=== PATIENT | female | born 1980 | race Caucasian/White ===

== ENCOUNTER 2017-01-16 10:57 | Emergency (ER) | payer MEDICAID ==
[~2017-01-16] VITALS: Ht 165.1 cm; Wt 87.5 kg
--- NOTE | 2017-01-16 11:09 | Emergency Room Report ---
History of Present Illness Time Seen by [id number] Presenting Problem in Triage Pt arrived:Walked Presenting Problem:abd pain that has caused blisters throughout her gi tract. 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 N Clinical Suspician of Infection? N Mental Status: 1 - Regular (Normal Baseline) Sepsis Risk:Low Sepsis Risk Have you (or family members/close friends) recently traveled outside the [place]? N If Yes, where/when: Have you had exposure to infectious disease within the past month? TB? Other? Specify: Comment The patient complains of epigastric pain. She says she has not been well since about December 28 when she ate some banana peppers. She says that after that she developed welts on her face and arms. She went to [facility] emergency Department on the and and received steroids and Benadryl. She saw her primary care physician on the and also got a shot of steroids at that time. She has seen an speech language pathologist travel, who put her on Flonase and saline spray. She is not currently on steroids or antihistamines. The hives have improved, but she still has a burning sensation in her face. On about Wednesday 3 or 4 days ago she developed midepigastric pain, and a small amount of nausea, vomiting, and diarrhea. She has a history of gastric esophageal reflux and is currently having bad reflux symptoms as well. She is on Zantac for that. She saw a new primary care physician 2 days ago and was prescribed Phenergan. ALLERGIES Coded Allergies: sulfamethoxazole (From BACTRIM) (Mild, 01/16/17) trimethoprim (From BACTRIM) (Mild, 01/16/17) History Medical History General Angina: No MD: No Hypertension? No Hyperlipidemia? No CHF? No COPD? No Asthma? No Hernia? No CVA? No Seizures? No Diabetes? No UTI? No Stones? No GB Disease: Yes Hepatitis? No Cataracts? No Glaucoma? No TB? No Cancer? 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 Hx LMP N/A Family History Family Hx Diabetes Yes CAD No Hypertension No Hyperlipidemia No Cancer Yes TB No Social History Smoking Hx Smoker: Former Smoker Tobacco: Yes Type Cigarettes Packs/day N/A Alcohol Alcohol: No Review of Systems All Other Systems Reviewed and Negative Constitutional denies fever Gastrointestinal abdominal pain, diarrhea, vomiting Skin see HPI Physical Exam Vital Signs Vital Signs Date Time Temp Pulse Resp B/P Pulse O2 O2 Flow FiO2 Ox Delivery Rate 01/16 1220 98.0 78 20 131/74 100 01/16 1103 98.0 89 18 150/96 98 General Appearance normal appearance, WD/WN Eye Exam - bilateral eye normal exam, bilateral eye PERRL, bilateral eye EOMI Ear, Nose, Throat hearing grossly normal, normal ENT inspection Neck normal inspection, non-tender, supple, full range of motion Respiratory Status Yes: trachea midline, chest symmetrical, non tender chest. No: respiratory distress. Lung Sounds bilateral: normal breath sounds, lungs clear. Cardiovascular normal exam, regular rate/rhythm, no peripheral edema, no gallop, no JVD, no murmur, no rub, normal peripheral pulses Peripheral Pulses Pulses normal Yes Gastrointestinal normal bowel sounds, soft, no organomegaly, no guarding, no rebound, tenderness (epigastric) Back normal inspection, no CVA tenderness, no vertebral tenderness Extremities non-tender, normal range of motion, normal inspection Neurologic alert, sleeve bottom feller II-XII nml as tested, normal exam, oriented x 3 Mental status normal mood/affect Skin intact, normal color, warm/dry Medical Decision Making LABS/Meds/Orders Pt receiving controlled substance in ED? No Results/Orders Laboratory Tests 01/16/17 1117: Urine Color Cancelled, Urine Appearance Cancelled, Urine pH Cancelled, Ur Specific [place] Cancelled 01/16/17 1105: Sodium 138, Potassium 3.5, Chloride 100, Carbon Dioxide 30, BUN 6 L, Creatinine 0.7, Estimated Creat Clear 152, Estimated GFR (MDRD) 94, Glucose 103, Calcium 9.2, Total Bilirubin 1.3 H, AST 19, ALT 38, Alkaline Phosphatase 95, Total Protein 7.8, Albumin 4.1, Globulin 3.7 H, Albumin/Globulin Ratio 1.1, Amylase 51, Lipase 111, WBC 9.4, RBC 4.65, Hgb 14.9, Hct 42.0, MCV 90.4, RDW 12.9, Plt Count 260, MPV 8.5, Gran % 71.0, Gran # 6.7, Lymphocytes % 21.1, Monocytes % 6.7 , Eosinophils % 0.4, Basophils % 0.7, Lymphocytes # 2.0, Monocytes # 0.6, Eosinophils # 0.0, Basophils # 0.1, PUBS MCHC 35.5 H, MCH 32.1 H Current Medication Orders Sig/Kayy Start time Last Medication Dose Route Stop Time Status Admin Sodium Chloride 10 ML PRN PRN 01/16 1130 DCD IV 01/17 1117 Orders Procedure Date/time Status SERUM , QUAL 01/16 1138 Complete IV SALINE LOCK 01/16 111 Active LIPASE 01/16 111 Complete CBC WITH AUTO DIFF 01/16 111 Complete CHEM 12 PROFILE 01/16 1117 Complete AMYLASE 01/16 111 Complete Progress - 11:15 AM: The patient refuses a gastrointestinal cocktail. 12:00 PM: I feel sx are most likely due to gastritis or PUD due to steroids. Departure Departure Disposition DC Home or Self Care(routine) Clinical Impression Primary Impression: Epigastric pain Condition STABLE Referrals [facility] (Family) Patient Instructions DI for Abdominal Pain-Adult Additional Instructions Start Prilosec, stop Zantac while on Prilosec. Additional instructions for ABDOMINAL PAIN: See your physician as soon as possible for further evaluation. Return immediately if worsening abdominal pain, vomiting, shortness of breath, fever, vomiting of blood or abdominal distention. Prescriptions Current Visit Scripts OMEPRAZOLE MAGNESIUM (Prilosec 20MG) 20 MG PO DAILY #10 TCP ED Critical Care Critical Care No at [id number]
--- NOTE | 2017-01-16 11:09 | Emergency Room Report ---
History of Present Illness Time Seen by [id number] Presenting Problem in Triage Pt arrived:Walked Presenting Problem:abd pain that has caused blisters throughout her gi tract. 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 N Clinical Suspician of Infection? N Mental Status: 1 - Regular (Normal Baseline) Sepsis Risk:Low Sepsis Risk Have you (or family members/close friends) recently traveled outside the [place]? N If Yes, where/when: Have you had exposure to infectious disease within the past month? TB? Other? Specify: Comment The patient complains of epigastric pain. She says she has not been well since about December 28 when she ate some banana peppers. She says that after that she developed welts on her face and arms. She went to [facility] emergency Department on the and and received steroids and Benadryl. She saw her primary care physician on the and also got a shot of steroids at that time. She has seen an brewery pumper, who put her on Flonase and saline spray. She is not currently on steroids or antihistamines. The hives have improved, but she still has a burning sensation in her face. On about Wednesday 3 or 4 days ago she developed midepigastric pain, and a small amount of nausea, vomiting, and diarrhea. She has a history of gastric esophageal reflux and is currently having bad reflux symptoms as well. She is on Zantac for that. She saw a new primary care physician 2 days ago and was prescribed Phenergan. ALLERGIES Coded Allergies: sulfamethoxazole (From BACTRIM) (Mild, 01/16/17) trimethoprim (From BACTRIM) (Mild, 01/16/17) History Medical History General Angina: No RI: No Hypertension? No Hyperlipidemia? No CHF? No COPD? No Asthma? No Hernia? No CVA? No Seizures? No Diabetes? No UTI? No Stones? No GB Disease: Yes Hepatitis? No Cataracts? No Glaucoma? No TB? No Cancer? 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 [employer] Hx LMP N/A Family History Family Hx Diabetes Yes CAD No Hypertension No Hyperlipidemia No Cancer Yes TB No Social History Smoking Hx Smoker: Former Smoker Tobacco: Yes Type Cigarettes Packs/day N/A Alcohol Alcohol: No Review of Systems All Other Systems Reviewed and Negative Constitutional denies fever Gastrointestinal abdominal pain, diarrhea, vomiting Skin see HPI Physical Exam Vital Signs Vital Signs Date Time Temp Pulse Resp B/P Pulse O2 O2 Flow FiO2 Ox Delivery Rate 01/16 1220 98.0 78 20 131/74 100 01/16 1103 98.0 89 18 150/96 98 General Appearance normal appearance, WD/WN Eye Exam - bilateral eye normal exam, bilateral eye PERRL, bilateral eye EOMI Ear, Nose, Throat hearing grossly normal, normal ENT inspection Neck normal inspection, non-tender, supple, full range of motion Respiratory Status Yes: trachea midline, chest symmetrical, non tender chest. No: respiratory distress. Lung Sounds bilateral: normal breath sounds, lungs clear. Cardiovascular normal exam, regular rate/rhythm, no peripheral edema, no gallop, no JVD, no murmur, no rub, normal peripheral pulses Peripheral Pulses Pulses normal Yes Gastrointestinal normal bowel sounds, soft, no organomegaly, no guarding, no rebound, tenderness (epigastric) Back normal inspection, no CVA tenderness, no vertebral tenderness Extremities non-tender, normal range of motion, normal inspection Neurologic alert, entry level paralegal II-XII nml as tested, normal exam, oriented x 3 Mental status normal mood/affect Skin intact, normal color, warm/dry Medical Decision Making LABS/Meds/Orders Pt receiving controlled substance in ED? No Results/Orders Laboratory Tests 01/16/17 1117: Urine Color Cancelled, Urine Appearance Cancelled, Urine pH Cancelled, Ur Specific [place] Cancelled 01/16/17 1105: Sodium 138, Potassium 3.5, Chloride 100, Carbon Dioxide 30, BUN 6 L, Creatinine 0.7, Estimated Creat Clear 152, Estimated GFR (MDRD) 94, Glucose 103, Calcium 9.2, Total Bilirubin 1.3 H, AST 19, ALT 38, Alkaline Phosphatase 95, Total Protein 7.8, Albumin 4.1, Globulin 3.7 H, Albumin/Globulin Ratio 1.1, Amylase 51, Lipase 111, WBC 9.4, RBC 4.65, Hgb 14.9, Hct 42.0, MCV 90.4, RDW 12.9, Plt Count 260, MPV 8.5, Gran % 71.0, Gran # 6.7, Lymphocytes % 21.1, Monocytes % 6.7 , Eosinophils % 0.4, Basophils % 0.7, Lymphocytes # 2.0, Monocytes # 0.6, Eosinophils # 0.0, Basophils # 0.1, PUBS MCHC 35.5 H, MCH 32.1 H Current Medication Orders Sig/Kayy Start time Last Medication Dose Route Stop Time Status Admin Sodium Chloride 10 ML PRN PRN 01/16 1130 DCD IV 01/17 1117 Orders Procedure Date/time Status SERUM , QUAL 01/16 1138 Complete IV SALINE LOCK 01/16 111 Active LIPASE 01/16 111 Complete CBC WITH AUTO DIFF 01/16 111 Complete CHEM 12 PROFILE 01/16 1117 Complete AMYLASE 01/16 111 Complete Progress - 11:15 AM: The patient refuses a gastrointestinal cocktail. 12:00 PM: I feel sx are most likely due to gastritis or PUD due to steroids. Departure Departure Disposition DC Home or Self Care(routine) Clinical Impression Primary Impression: Epigastric pain Condition STABLE Referrals [facility] (Family) Patient Instructions DI for Abdominal Pain-Adult Additional Instructions Start Prilosec, stop Zantac while on Prilosec. Additional instructions for ABDOMINAL PAIN: See your physician as soon as possible for further evaluation. Return immediately if worsening abdominal pain, vomiting, shortness of breath, fever, vomiting of blood or abdominal distention. Prescriptions Current Visit Scripts OMEPRAZOLE MAGNESIUM (Prilosec 20MG) 20 MG PO DAILY #10 TCP ED Critical Care Critical Care No at [id number]
[2017-01-16 11:23] LABS: HEMOGLOBIN 14.9 g/dL (12.2-16.2); LYMPH % 21.1 % (10-50.0)
[2017-01-16] MEDS ORDERED: PRILOSEC20 M1 PO (12:01)
[2017-01-16 12:20] VITALS: BP 131/74
== END 2017-01-16 12:22 | disposition home or self-care (01) ==
LOC: ER 10:57
PROVIDERS: Emergency Medicine
DX: R10.13 Epigastric pain (principal)

== ENCOUNTER 2017-04-01 22:54 | Emergency (ER) | payer MEDICAID ==
[~2017-04-01] VITALS: Ht 165.1 cm; Wt 90.7 kg
[~2017-04-01 22:54] MED LIST: PRILOSEC20 M1 PO
[2017-04-01] MEDS ORDERED: PREDNISONE 20MG20 MG PO (23:06)
[2017-04-01] MEDS ORDERED: VISTARIL25 MG PO (23:07)
[2017-04-01 23:16] LABS: URINE BILIRUBIN - DIPSTICK NEGATIVE (NEG); URINE BLOOD TRACE-INTACT (NEG)
[2017-04-01 23:22] LABS: HEMOGLOBIN 14.9 g/dL (12.2-16.2); LYMPH # 1.1 K/mm3 (0.7-4.5); LYMPH % 8.4 % (10-50.0)
--- OUTSIDE RECORDS SUMMARY | 2017-04-01 23:29 | External Medical Summary Rpt | CCD ---
Author Author [employer] Organization [employer] Address Unknown Phone Unavailable Purpose Continuity of Care Document - through 2016
--- OUTSIDE RECORDS SUMMARY | 2017-04-01 23:29 | External Medical Summary Rpt | CCD ---
Demographics Preferred Language Belgian Marital Status Unknown Pentecostal Affiliation Unknown Race Unknown Ethnic Group Unknown Author Author , JUAN MARTINEZ Address Unknown Phone Immunization No patient found.
--- OUTSIDE RECORDS SUMMARY | 2017-04-01 23:29 | External Medical Summary Rpt | CCD ---
Author Author , JUAN MARTINEZ Address Unknown Phone [email or web address] Purpose Continuity of Care Document - 09-02-2015 through 2016 Problems Code Diagnosis DOS Provider Status K21.9 GASTRO-ESOP 01-29-2017 HAGEAL REFLUX DISEASE WITHOUT ESOPHAGITIS K52.9 NONINFECTIV 01-29-2017 E GASTROENTER ITIS AND COLITIS, UNSPECIFIED N83.202 UNSPECIFIED 01-29-2017 OVARIAN CYST, LEFT SIDE R11.2 NAUSEA WITH 01-29-2017 VOMITING, UNSPECIFIED Z87.891 PERSONAL 01-29-2017 HISTORY OF NICOTINE DEPENDENCE Z88.1 ALLERGY 01-29-2017 STATUS TO OTHER ANTIBIOTIC AGENTS STATUS L30.9 DERMATITIS, 01-08-2017 UNSPECIFIED R21 RASH AND 01-08-2017 OTHER NONSPECIFIC SKIN ERUPTION L25.9 UNSPECIFIED 12-31-2016 CONTACT DERMATITIS, UNSPECIFIED CAUSE T47.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-2016 EFFECT OF HISTAMINE H2-RECEPTOR BLOCKERS, INITIAL ENCOUNTER R10.13 EPIGASTRIC PAIN Results Labs Lab Lab Date Result Refere Interp Status Commen Order Detail nces retati t Range on Urinalysis dipstick W Reflex Microscopic panel in Urine (04-01-2017 23:10) Appeara CLEAR CLEAR complet nce of 017 ed Urine 23:10 Bilirub NEGATIV NEG complet in 017 E ed [Presen 23:10 ce] in Urine by Test strip Erythro TRACE-I NEG complet cytes 017 NTACT ed [Presen 23:10 ce] in Urine Color YELLOW YELLOW complet of 017 ed Urine 23:10 Ketones NEGATIV NEG complet 017 E ed [Presen 23:10 ce] in Urine by Automat ed test strip Mucus NEGATIV NEG complet [Presen 017 E ed ce] in 23:10 Urine sedimen t by Light microsc opy Nitrite NEGATIV NEG complet 017 E ed [Presen 23:10 ce] in Urine by Test strip Urobili 2 0.2 NEG complet nogen 017 ed [Presen 23:10 ce] in Urine by Test strip Troponin T SerPl Ql (01-18-2017 15:42) Troponi 01-18- 0.00 0.00-0. complet n I 017 ng/mL 07 ed SerPl-m 15:42 Cnc UA Microscopic Pnl # Ur Auto (01-18-2017 13:32) RBC # 0-2 None complet Ur 017 /HPF Seen, ed 13:32 0-2 Ref lab Automat complet test 017 ed ed method 13:32 Microsc opy Hyaline 0-6 0-6 complet Casts 017 /LPF ed Ur Ql 13:32 Auto Squamou 0-2 None complet s 017 /HPF Seen, ed #/area 13:32 0-2 UrnS HPF Bacteri [id number] None complet a Ur Ql 017 00 Not Seen, ed Auto 13:32 detecte Trace d SCT /HPF WBC Ur 0-2 None complet Ql Auto 017 /HPF Seen ed 13:32 UA Dipstick Pnl Ur (01-18-2017 13:32) Urobili 0.2 0.2 - complet nogen 017 E.U./dL 1.0 ed Ur Ql 13:32 E.U./dL Strip Nitrite [id number] Negativ complet Ur Ql 017 09 e ed Strip 13:32 Negativ e SCT Leukocy [id number] Negativ complet te 017 09 e ed esteras 13:32 Negativ e Ur Ql e SCT Strip.a uto Prot Ur [id number] Negativ complet Ql 017 09 e ed Strip 13:32 Negativ e SCT Hgb Ur [id number] Negativ complet Ql 017 06 e ed Strip.a 13:32 Trace uto SCT Bilirub [id number] Negativ complet Ur Ql 017 09 e ed Strip 13:32 Negativ e SCT Ketones 80 Negativ complet Ur Ql 017 mg/dL e ed Strip 13:32 (3+) Glucose [id number] Negativ complet Ur 017 09 e ed Strip-m 13:32 Negativ Cnc e SCT Sp Gr 1.009 1.001-1 complet Ur 017 .030 ed Strip 13:32 pH Ur 6.0 5.0-8.0 complet Strip.a 017 ed uto 13:32 Clarity [id number] Clear complet Ur 017 01 ed 13:32 Clear SCT Color [id number] Yellow, complet Ur 017 09 Straw ed 13:32 Yellow color SCT Troponin T SerPl Ql (01-18-2017 13:21) Troponi 0.00 0.00-0. complet n I 017 ng/mL 07 ed SerPl-m 13:21 Cnc LPL SerPl-cCnc (01-18-2017 13:16) Lipase 32 U/L 6-51 complet SerPl-c 017 ed Cnc 13:16 Comp Metab 1998 Pnl SerPl (01-18-2017 13:16) Anion 7.0 3.0-11. complet Gap3 017 mmol/L 0 ed SerPl-s 13:16 Cnc BUN/Cre 10.0 7.0-25. complet at 017 0 ed SerPl 13:16 Albumin 1.7 1.5-2.5 complet /Glob 017 g/dL ed SerPl 13:16 Globuli 2.7 complet n Ur 017 gm/dL ed Elph-mC 13:16 nc GFR/BSA 139 >60 complet .pred 017 mL/min/ ed SerPl 13:16 1.73 MDRD-Ar VRat Bilirub 1.2 0.3-1.2 complet 017 mg/dL ed SerPl-m 13:16 Cnc ALP 94 U/L 25-100 complet SerPl-c 017 ed Cnc 13:16 AST 25 U/L 0-33 complet SerPl-c 017 ed Cnc 13:16 ALT 37 U/L 7-40 complet SerPl w 017 ed 13:16 P-5'-P- cCnc Albumin 08-28-2 4.70 3.20-4. complet 017 g/dL 80 ed SerPl-m 13:16 Cnc Prot 2 7.4 5.7-8.2 complet SerPl-m 017 g/dL ed Cnc 13:16 Calcium 01-18-2 9.9 8.7-10. complet 017 mg/dL 4 ed XXX-sCn 13:16 c CO2 2 28.0 20.0-31 complet SerPl-s 017 mmol/L .0 ed Cnc 13:16 Chlorid 2 101 99-109 complet e 017 mmol/L ed SerPl-s 13:16 Cnc Potassi 2 3.8 3.5-5.5 complet um 017 mmol/L ed Bld-sCn 13:16 c Sodium 01-18-2 136 132-146 complet Bld-sCn 017 mmol/L ed c 13:16 Creat 2 0.50 0.60-1. complet Bld-mCn 017 mg/dL 30 ed c 13:16 BUN 2 5 mg/dL 9-23 complet Bld-mCn 017 ed c 13:16 Glucose 92 70-100 complet 017 mg/dL ed Bld-mCn 13:16 c CBC W Diff pnl,unspecified Bld (01-18-2017 13:16) WBC 01-18-2 10.77 3.50-10 complet nRBC 017 10*3/mm .80 ed cor # 13:16 3 Bld Imm 01-18-2 0.03 0.00-0. complet Granulo 017 10*3/mm 03 ed cytes # 13:16 3 Bld Basophi 01-18-2 0.03 0.00-0. complet ls # 017 10*3/mm 20 ed Bld 13:16 3 Auto Eosinop 01-18-2 0.03 0.00-0. complet hil # 017 10*3/mm 30 ed Bld 13:16 3 Auto Monocyt 01-18-2 0.79 0.00-1. complet es # 017 10*3/mm 00 ed Bld 13:16 3 Auto Lymphoc 01-18-2 2.46 0.60-4. complet ytes # 017 10*3/mm 80 ed Bld 13:16 3 Auto Neutrop 01-18-2 7.43 1.50-8. complet hils # 017 10*3/mm 30 ed Bld 13:16 3 Auto Imm 2 0.3 % 0.0-0.6 complet Granulo 017 ed cytes/l 13:16 euk NFr Bld Basophi 2 0.3 % 0.0-1.0 complet ls/leuk 017 ed NFr 13:16 Bld Auto Eosinop 2 0.3 % 0.0-3.0 complet hil/sherry 017 ed k NFr 13:16 Bld Auto Monocyt 2 7.3 % 0.0-12. complet es/leuk 017 0 ed NFr 13:16 Bld Auto Lymphoc 22.8 % 24.0-44 complet ytes/le 017 .0 ed uk NFr 13:16 Bld Auto Neutrop 69.0 % 41.0-71 complet hils/le 017 .0 ed uk NFr 13:16 Bld Auto Platele 262 150-450 complet t # Bld 017 10*3/mm ed Auto 13:16 3 PMV Bld 11.2 fL 6.0-12. complet Auto 017 0 ed 13:16 RDW RBC 41.9 fl 37.0-54 complet Auto 017 .0 ed 13:16 RDW RBC 13.0 % 11.3-14 complet 017 .5 ed Auto-Rt 13:16 o MCHC 2 36.0 32.0-36 complet RBC 017 g/dL .0 ed Auto-mC 13:16 nc MCH RBC 32.0 pg 27.0-31 complet Qn 017 .0 ed Auto 13:16 MCV RBC 88.9 fL 80.0-99 complet Auto 017 .0 ed 13:16 Hct VFr 2 39.2 % 34.5-44 complet Bld 017 .0 ed Auto 13:16 Hgb 01-18-2 14.1 11.5-15 complet Bld-mCn 017 g/dL .5 ed c 13:16 RBC # 08-28-2 4.41 3.89-5. complet Bld 017 10*6/mm 14 ed Auto 13:16 3 Urease [Presence] in Tissue (06-19-2016 08:19) Urease NEGATIV NL: complet [Presen 017 E NEGATIV ed ce] in 08:19 E Tissue Urease [Presence] in Tissue (06-05-2016 08:58) Urease NEGATIV NL: complet [Presen 017 E NEGATIV ed ce] in 08:58 E Tissue Urinalysis dipstick W Reflex Microscopic panel in Urine (05-19-2016 15:20) Color YELLOW NL: complet of 016 Negativ ed Urine 15:20 e Appeara CLEAR NL: complet nce of 016 Negativ ed Urine 15:20 e Glucose NEG NL: complet 016 Negativ ed [Mass/v 15:20 e olume] in Urine by Test strip Bilirub 1+ NL: Abnorma complet in 016 Negativ l ed [Presen 15:20 e ce] in Urine by Test strip Ketones TRACE NL: complet 016 Negativ ed [Presen 15:20 e ce] in Serum or Plasma Specifi >=1.030 NL: complet c 016 1.00 >= ed gravity 15:20 1.030 of Urine Hemoglo TRACE-L NL: complet bin 016 Y Negativ ed [Presen 15:20 e ce] in Urine by Test strip pH of 5.5 NL: complet Urine 016 ed by Test 15:20 strip Protein 2+ NL: Abnorma complet 016 Negativ l ed [Presen 15:20 e ce] in Urine by Test strip Urobili 0.2 NL: 0.2 complet nogen 016 - 1.0 ed [Mass/v 15:20 olume] in Urine by Test strip Nitrite NEG NL: complet 016 Negativ ed [Presen 15:20 e ce] in Urine by Test strip Leukocy NEG NL: complet tory 016 Negativ ed [#/volu 15:20 e me] in Blood by Automat ed count Additio C CATCH complet nal 016 ed comment 15:20 s RFC CULTURE NOT complet SETUP 016 INDIC ed 15:20 Comprehensive metabolic 1998 panel in Serum or Plasma (05-19-2016 14:40) Sodium 140 136 - complet [Moles/ 016 mmol/L 145 ed volume] 14:40 in Serum or Plasma Potassi 4.0 3.5 - complet um 016 mmol/L 5.1 ed [Moles/ 14:40 volume] in Serum or Plasma Chlorid 103 98 - complet e 016 mmol/L 107 ed [Moles/ 14:40 volume] in Serum or Plasma Carbon 25 21 - 32 complet dioxide 016 mmol/L ed , total 14:40 [Moles/ volume] in Blood Anion 16 5 - 15 High complet gap in 016 mmol/L ed Serum 14:40 or Plasma Glucose 108 70 - complet 016 mg/dl 120 ed [Mass/v 14:40 olume] in Serum or Plasma Urea 13 7 - 18 complet nitroge 016 mg/dl ed n 14:40 [Mass/v olume] in Serum or Plasma Creatin 0.7 0.6 - complet ine 016 mg/dl 1.3 ed [Mass/v 14:40 olume] in Serum or Plasma AGE [age] yrs complet 016 ed 14:40 GFR >60 complet 016 ed 14:40 Urea 19 6 - 25 complet nitroge 016 ratio ed n/Creat 14:40 inine [Mass ratio] in Serum or Plasma Osmolal 280 272 - complet ity of 016 295 ed Unspeci 14:40 fied specime n Calcium 8.7 8.5 - complet 016 mg/dl 10.1 ed [Mass/v 14:40 olume] in Serum or Plasma Bilirub 0.7 0.2 - complet in.tota 016 mg/dl 1.0 ed l 14:40 [Mass/v olume] in Serum or Plasma Asparta 16 IU/L 15 - 37 complet te 016 ed aminotr 14:40 ansfera se [Enzyma tic activit y/volum e] in Serum or Plasma Alanine 34 IU/L 12 - 78 complet 016 ed aminotr 14:40 ansfera se [Enzyma tic activit y/volum e] in Serum or Plasma Alkalin 105 46 - complet e 016 IU/L 116 ed phospha 14:40 tase [Enzyma tic activit y/volum e] in Serum or Plasma Protein 7.9 6.4 - complet 016 g/dl 8.2 ed [Mass/v 14:40 olume] in Serum or Plasma Albumin 4.2 3.4 - complet 016 g/dl 5.0 ed [Mass/v 14:40 olume] in Serum or Plasma Albumin 3.7 1.3 - High complet /Globul 016 g/dl 3.5 ed in 14:40 [Mass ratio] in Serum or Plasma Albumin 1.1 1.0 - complet /Globul 016 ratio 3.9 ed in 14:40 [Mass ratio] in Serum or Plasma Platelet; Plt; Thrombocytes; Platelt; Thrb; Thrombocyte; Diff Pnl; Point in time (05-19-2016 14:40) Leukocy 16.6 4.5 - High complet tory 016 K/uL 11.5 ed [#/volu 14:40 me] in Blood by Automat ed count Microbi OH complet ology 016 M. ed studies 14:40 @1457 (set) 6 LMM Erythro 4.70 4.00 - complet cytes 016 M/uL 5.40 ed [#/volu 14:40 me] in Blood by Automat ed count Hemoglo 15.1 12.0 - High complet bin 016 g/dL 15.0 ed [Mass/v 14:40 olume] in Blood Hematoc 42 % 35 - 49 complet rit 016 ed [Volume 14:40 Fractio n] of Blood by Automat ed count Erythro 89.1 fL 80.0 - complet cyte 016 100 ed mean 14:40 corpusc ular volume [Entiti c volume] by Automat ed count Erythro 32.1 pg 26.0 - High complet cyte 016 32.0 ed mean 14:40 corpusc ular hemoglo bin [Entiti c mass] by Automat ed count Erythro 36.0 32.0 - complet cyte 016 g/dL 36.0 ed mean 14:40 corpusc ular hemoglo bin concent ration [Mass/v olume] in Blood from Fetus by Automat ed count Erythro 12.8 % 11.5 - complet cyte 016 14.5 ed distrib 14:40 ution width [Ratio] by Automat ed count Platele 277 150 - complet ts 016 K/uL 450 ed [#/volu 14:40 me] in Blood by Automat ed count Manual SEE complet differe 016 BELOW ed ntial 14:40 perform ed [Presen ce] in Blood Neutrop 92 % 40 - 75 High complet hils.se 016 ed gmented 14:40 [#/volu me] in Blood by Manual count BANDS 2 % 0 - 5 complet 016 ed 14:40 Lymphoc 2 % 16 - 46 Low complet ytes/10 016 ed 0 14:40 leukocy tory in Blood Monocyt 4 % 0 - 12 complet es 016 ed [#/volu 14:40 me] in Blood Platele ADEQUAT complet ts 016 E ed [Presen 14:40 ce] in Blood by Light microsc opy Erythro NORMAL complet cyte 016 ed morphol 14:40 ogy finding [Identi fier] in Blood Influenza virus A\T\B Ag (04-23-2016 00:50) Influen NEGATIV complet za 016 E ed virus A 00:50 Ag [Presen ce] in Unspeci fied specime n Influen NEGATIV complet za 016 E ed virus B 00:50 Ag [Presen ce] in Unspeci fied specime n Creatine kinase.MB [Mass/volume] in Serum or Plasma (09-03-2015 04:55) Creatin 0.4 0.0 - complet e 016 ng/ml 3.6 ed kinase. 04:55 MB [Mass/v olume] in Serum or Plasma Creatin 46 U/L 21 - complet e 016 215 ed kinase 04:55 [Enzyma tic activit y/volum e] in Serum or Plasma Creatin 1 % 0 - 4 complet e 016 ed kinase. 04:55 MB/Crea mp kinase. total in Serum or Plasma by calcula tion Troponin I.cardiac [Mass/volume] in Serum or Plasma (09-03-2015 04:55) Troponi 0.00 0.00 - complet n 016 ng/ml 0.05 ed I.cardi 04:55 ac [Mass/v olume] in Serum or Plasma Additio NO complet nal 016 ed comment 04:55 s RFC CBC W DIFF AUTOMATED (09-03-2015 04:55) Leukocy 7.7 4.5 - complet tory 016 K/uL 11.5 ed [#/volu 04:55 me] in Blood by Automat ed count Erythro 3.98 4.00 - Low complet cytes 016 M/uL 5.40 ed [#/volu 04:55 me] in Blood by Automat ed count Hemoglo 13.0 12.0 - complet bin 016 g/dL 15.0 ed [Mass/v 04:55 olume] in Blood Hematoc 36 % 35 - 49 complet rit 016 ed [Volume 04:55 Fractio n] of Blood by Automat ed count Erythro 90.5 fL 80.0 - complet cyte 016 100 ed mean 04:55 corpusc ular volume [Entiti c volume] by Automat ed count Erythro 32.7 pg 26.0 - High complet cyte 016 32.0 ed mean 04:55 corpusc ular hemoglo bin [Entiti c mass] by Automat ed count Erythro 36.1 32.0 - High complet cyte 016 g/dL 36.0 ed mean 04:55 corpusc ular hemoglo bin concent ration [Mass/v olume] in Blood from Fetus by Automat ed count Erythro 12.4 % 11.5 - complet cyte 016 14.5 ed distrib 04:55 ution width [Ratio] by Automat ed count Platele 240 150 - complet ts 016 K/uL 450 ed [#/volu 04:55 me] in Blood by Automat ed count Lymphoc 31.3 % 18.0 - complet ytes/10 016 42.0 ed 0 04:55 leukocy tory in Blood by Automat ed count Monocyt 8.4 % 2.0 - complet es/100 016 11.0 ed leukocy 04:55 tory in Blood by Automat ed count Neutrop 58.7 % 50.0 - complet hils.ba 016 70.0 ed nd 04:55 form/10 0 leukocy tory in Blood by Manual count Eosinop 1.20 % 1.00 - complet hils/10 016 3.00 ed 0 04:55 leukocy tory in Blood by Automat ed count Basophi 0.40 % 0.00 - complet ls/100 016 2.00 ed leukocy 04:55 tory in Blood by Automat ed count Lymphoc 2.42 0.60 - complet ytes/10 016 K/uL 3.40 ed 0 04:55 leukocy tory in Blood by Automat ed count Monocyt 0.65 0.00 - complet es/100 016 K/uL 0.90 ed leukocy 04:55 tory in Blood by Automat ed count Neutrop 4.54 2.00 - complet hils.ba 016 K/uL 6.90 ed nd 04:55 form/10 0 leukocy tory in Blood by Manual count Eosinop 0.09 0.00 - complet hils/10 016 K/uL 0.70 ed 0 04:55 leukocy tory in Blood by Automat ed count Basophi 0.03 0.00 - complet ls/100 016 K/uL 0.20 ed leukocy 04:55 tory in Blood by Automat ed count Manual NOT complet differe 016 INDICAT ed ntial 04:55 ED perform ed [Presen ce] in Blood Microscopic observation [Identifier] in Sputum by Gram stain (09-03-2015 03:15) Additio NO complet nal 016 ed comment 03:15 s RFC Additio YES complet nal 016 ed comment 03:15 s RFC Creatine kinase.MB [Mass/volume] in Serum or Plasma (09-02-2015 22:57) Creatin 0.5 0.0 - complet e 016 ng/ml 3.6 ed kinase. 22:57 MB [Mass/v olume] in Serum or Plasma Creatin 55 U/L 21 - complet e 016 215 ed kinase 22:57 [Enzyma tic activit y/volum e] in Serum or Plasma Creatin 1 % 0 - 4 complet e 016 ed kinase. 22:57 MB/Crea mp kinase. total in Serum or Plasma by calcula tion Troponin I.cardiac [Mass/volume] in Serum or Plasma (09-02-2015 22:57) Troponi 0.01 0.00 - complet n 016 ng/ml 0.05 ed I.cardi 22:57 ac [Mass/v olume] in Serum or Plasma Additio NO complet nal 016 ed comment 22:57 s RFC Bacteria identified in Blood by Culture (09-02-2015 17:20) STATUS PRELIMI complet 016 NARY ed 17:20 RESULT NO complet 016 GROWTH ed 17:20 AT 1 DAY RESULTE EHB complet D BY 016 ed 17:20 SEND Y complet PHARM/I 016 ed C 17:20 STATUS FINAL complet 016 ed 17:20 RESULT NO complet 016 GROWTH ed 17:20 5 DAYS RESULTE CAM complet D BY 016 ed 17:20 SEND TO N complet ER 016 ed 17:20 Bacteria identified in Blood by Culture (09-02-2015 17:10) STATUS PRELIMI complet 016 NARY ed 17:10 RESULT NO complet 016 GROWTH ed 17:10 AT 1 DAY RESULTE EHB complet D BY 016 ed 17:10 SEND Y complet PHARM/I 016 ed C 17:10 STATUS FINAL complet 016 ed 17:10 RESULT NO complet 016 GROWTH ed 17:10 5 DAYS RESULTE CAM complet D BY 016 ed 17:10 SEND TO N complet ER 016 ed 17:10 Creatine kinase.MB [Mass/volume] in Serum or Plasma (09-02-2015 17:10) Creatin 1.1 0.0 - complet e 016 ng/ml 3.6 ed kinase. 17:10 MB [Mass/v olume] in Serum or Plasma Creatin 63 U/L 21 - complet e 016 215 ed kinase 17:10 [Enzyma tic activit y/volum e] in Serum or Plasma Creatin 2 % 0 - 4 complet e 016 ed kinase. 17:10 MB/Crea mp kinase. total in Serum or Plasma by calcula tion Myoglobin [Mass/volume] in Serum or Plasma (09-02-2015 17:10) Myoglob 21 10 - 92 complet in 016 ng/ml ed [Mass/v 17:10 olume] in Serum or Plasma Natriutietic peptide B [Mass/volume] in Serum or Plasma (09-02-2015 17:10) Natriut 29 0 - 131 complet ietic 016 pg/ml ed peptide 17:10 B [Mass/v olume] in Serum or Plasma Additio NO complet nal 016 ed comment 17:10 s [facility] Lipid 1996 panel in Serum or Plasma (09-02-2015 17:10) Triglyc 43 1 - 150 complet eride 016 mg/dL ed [Mass/v 17:10 olume] in Serum or Plasma Cholest 138 0 - 200 complet lakia 016 mg/dL ed [Mass/v 17:10 olume] in Serum or Plasma Cholest 59 35 - 60 complet [place] in 016 mg/dl ed HDL 17:10 [Mass/v olume] in Serum or Plasma Cholest 70 0 - 130 complet [place] in 016 mg/dl ed LDL 17:10 [Mass/v olume] in Serum or Plasma by calcula tion Cholest 2.34 0.00 - complet [place].to 016 ratio 4.44 ed [place] 17:10 lestero l in HDL [Mass ratio] in Serum or Plasma Fibrin D-dimer FEU [Mass/volume] in Platelet poor plasma (09-02-2015 17:10) Fibrin 0.22 0.19 - complet D-dimer 016 mg/L_FE 0.59 ed FEU 17:10 U [Mass/v olume] in Platele t poor plasma Thyrotropin [Units/volume] in Serum or Plasma by Detection limit <= 0.05 mIU/L (09-02-2015 17:10) Thyrotr 0.64 0.36 - complet opin 016 uIU/mL 3.74 ed [Units/ 17:10 volume] in Serum or Plasma by Detecti on limit <= 0.05 mIU/L Comprehensive metabolic 1998 panel in Serum or Plasma (09-02-2015 17:10) Sodium 138 136 - complet [Moles/ 016 mmol/L 145 ed volume] 17:10 in Serum or Plasma Potassi 3.6 3.5 - complet um 016 mmol/L 5.1 ed [Moles/ 17:10 volume] in Serum or Plasma Chlorid 101 98 - complet e 016 mmol/L 107 ed [Moles/ 17:10 volume] in Serum or Plasma Carbon 29 21 - 32 complet dioxide 016 mmol/L ed , total 17:10 [Moles/ volume] in Blood Anion 12 5 - 15 complet gap in 016 mmol/L ed Serum 17:10 or Plasma Glucose 85 70 - complet 016 mg/dl 120 ed [Mass/v 17:10 olume] in Serum or Plasma Urea 7 mg/dl 7 - 18 complet nitroge 016 ed n 17:10 [Mass/v olume] in Serum or Plasma Creatin 0.5 0.6 - Low complet ine 016 mg/dl 1.3 ed [Mass/v 17:10 olume] in Serum or Plasma AGE [age] yrs complet 016 ed 17:10 GFR >60 complet 016 ed 17:10 Urea 14 6 - 25 complet nitroge 016 ratio ed n/Creat 17:10 inine [Mass ratio] in Serum or Plasma Osmolal 273 272 - complet ity of 016 295 ed Unspeci 17:10 fied specime n Calcium 8.7 8.5 - complet 016 mg/dl 10.1 ed [Mass/v 17:10 olume] in Serum or Plasma Bilirub 0.6 0.2 - complet in.tota 016 mg/dl 1.0 ed l 17:10 [Mass/v olume] in Serum or Plasma Asparta 14 IU/L 15 - 37 Low complet te 016 ed aminotr 17:10 ansfera se [Enzyma tic activit y/volum e] in Serum or Plasma Alanine 39 IU/L 12 - 78 complet 016 ed aminotr 17:10 ansfera se [Enzyma tic activit y/volum e] in Serum or Plasma Alkalin 78 IU/L 46 - complet e 016 116 ed phospha 17:10 tase [Enzyma tic activit y/volum e] in Serum or Plasma Protein 7.2 6.4 - complet 016 g/dl 8.2 ed [Mass/v 17:10 olume] in Serum or Plasma Albumin 4.0 3.4 - complet 016 g/dl 5.0 ed [Mass/v 17:10 olume] in Serum or Plasma Albumin 3.2 1.3 - complet /Globul 016 g/dl 3.5 ed in 17:10 [Mass ratio] in Serum or Plasma Albumin 1.3 1.0 - complet /Globul 016 ratio 3.9 ed in 17:10 [Mass ratio] in Serum or Plasma Troponin I.cardiac [Mass/volume] in Serum or Plasma (09-02-2015 17:10) Troponi 0.01 0.00 - complet n 016 ng/ml 0.05 ed I.cardi 17:10 ac [Mass/v olume] in Serum or Plasma Additio YES complet nal 016 ed comment 17:10 s RFC Microbi MDA TO complet ology 016 ROHIT T ed studies 17:10 (set) 6 1750 CBC W DIFF AUTOMATED (09-02-2015 17:10) Leukocy 9.3 4.5 - complet tory 016 K/uL 11.5 ed [#/volu 17:10 me] in Blood by Automat ed count Erythro 4.24 4.00 - complet cytes 016 M/uL 5.40 ed [#/volu 17:10 me] in Blood by Automat ed count Hemoglo 13.7 12.0 - complet bin 016 g/dL 15.0 ed [Mass/v 17:10 olume] in Blood Hematoc 38 % 35 - 49 complet rit 016 ed [Volume 17:10 Fractio n] of Blood by Automat ed count Erythro 89.6 fL 80.0 - complet cyte 016 100 ed mean 17:10 corpusc ular volume [Entiti c volume] by Automat ed count Erythro 32.3 pg 26.0 - High complet cyte 016 32.0 ed mean 17:10 corpusc ular hemoglo bin [Entiti c mass] by Automat ed count Erythro 36.1 32.0 - High complet cyte 016 g/dL 36.0 ed mean 17:10 corpusc ular hemoglo bin concent ration [Mass/v olume] in Blood from Fetus by Automat ed count Erythro 12.1 % 11.5 - complet cyte 016 14.5 ed distrib 17:10 ution width [Ratio] by Automat ed count Platele 245 150 - complet ts 016 K/uL 450 ed [#/volu 17:10 me] in Blood by Automat ed count Lymphoc 24.2 % 18.0 - complet ytes/10 016 42.0 ed 0 17:10 leukocy tory in Blood by Automat ed count Monocyt 7.8 % 2.0 - complet es/100 016 11.0 ed leukocy 17:10 tory in Blood by Automat ed count Neutrop 67.4 % 50.0 - complet hils.ba 016 70.0 ed nd 17:10 form/10 0 leukocy tory in Blood by Manual count Eosinop 04-11-2 0.30 % 1.00 - Low complet hils/10 016 3.00 ed 0 17:10 leukocy tory in Blood by Automat ed count Basophi 0.30 % 0.00 - complet ls/100 016 2.00 ed leukocy 17:10 tory in Blood by Automat ed count Lymphoc 2.25 0.60 - complet ytes/10 016 K/uL 3.40 ed 0 17:10 leukocy tory in Blood by Automat ed count Monocyt 0.73 0.00 - complet es/100 016 K/uL 0.90 ed leukocy 17:10 tory in Blood by Automat ed count Neutrop 6.26 2.00 - complet hils.ba 016 K/uL 6.90 ed nd 17:10 form/10 0 leukocy tory in Blood by Manual count Eosinop 0.03 0.00 - complet hils/10 016 K/uL 0.70 ed 0 17:10 leukocy tory in Blood by Automat ed count Basophi 0.03 0.00 - complet ls/100 016 K/uL 0.20 ed leukocy 17:10 tory in Blood by Automat ed count Manual NOT complet differe 016 INDICAT ed ntial 17:10 ED perform ed [Presen ce] in Blood
--- OUTSIDE RECORDS SUMMARY | 2017-04-01 23:29 | External Medical Summary Rpt | CCD ---
Demographics Preferred Language [place] Marital Status Unknown Roman Catholic Affiliation Unknown Race Unknown Ethnic Group Unknown Author Author , JUAN MARTINEZ Address Unknown Phone Immunization No patient found.
--- OUTSIDE RECORDS SUMMARY | 2017-04-01 23:29 | External Medical Summary Rpt | CCD ---
Author Author , JUAN MARTINEZ Address Unknown Phone [email or web address] Purpose Continuity of Care Document - 09-02-2015 [...] ed #/area 13:32 0-2 UrnS HPF Bacteri [id number] None complet a Ur Ql 017 00 Not Seen, ed Auto 13:32 detecte Trace d SCT /HPF WBC Ur 0-2 None complet Ql Auto 017 /HPF Seen ed 13:32 UA Dipstick Pnl Ur (01-18-2017 13:32) Urobili 0.2 0.2 - complet nogen 017 E.U./dL 1.0 ed Ur Ql 13:32 E.U./dL Strip Nitrite [id number] Negativ complet Ur Ql 017 09 e ed Strip 13:32 Negativ e SCT Leukocy [id number] Negativ complet te 017 09 e ed esteras 13:32 Negativ e Ur Ql e SCT Strip.a uto Prot Ur [id number] Negativ complet Ql 017 09 e ed Strip 13:32 Negativ e SCT Hgb Ur [id number] Negativ complet Ql 017 06 e ed Strip.a 13:32 Trace uto SCT Bilirub [id number] Negativ complet Ur Ql 017 09 e ed Strip 13:32 Negativ e SCT Ketones 80 Negativ complet Ur Ql 017 mg/dL e ed Strip 13:32 (3+) Glucose 7071089 Negativ complet Ur 017 09 e ed Strip-m 13:32 Negativ Cnc e SCT Sp Gr 1.009 1.001-1 complet Ur 017 .030 ed Strip 13:32 pH Ur 6.0 5.0-8.0 complet Strip.a 017 ed uto 13:32 Clarity [id number] Clear complet Ur 017 01 ed 13:32 Clear SCT Color [id number] Yellow, complet Ur 017 09 Straw ed [...] complet nal 016 ed comment 17:10 s [facility] [[email or web address]] Lipid 1996 panel in Serum or Plasma [...] 016 K/uL 3.40 ed 0 17:10 leukocy otry in Blood by Automat ed count Monocyt [...]
--- OUTSIDE RECORDS SUMMARY | 2017-04-01 23:30 | External Medical Summary Rpt ---
Author Author JUAN Klein, [employer] Address Unknown Phone Unavailable Results Urinalysis dipstick W Reflex Microscopic panel in Urine Observa Value Referen Units Interpr Notes Date tion ce etation Range Appeara CLEAR CLEAR No No No Nov 9 nce of informa informa informa 2017 Urine tion in tion in tion in 11:10 source source source PM data data data Bilirub NEGATIV NEG No No No Mar 9 in E informa informa informa 2016 [Presen tion in tion in tion in 11:10 ce] in source source source PM Urine data data data by Test strip Erythro TRACE-I NEG No No No Mar 9 cytes NTACT informa informa informa 2016 [Presen tion in tion in tion in 11:10 ce] in source source source PM Urine data data data Color YELLOW YELLOW No No No Nov 9 of informa informa informa 2017 Urine tion in tion in tion in 11:10 source source source PM data data data Glucose NEG No High No Nov 9 [Mass/vol informati informati 2017 ume] in on in on in 11:10 PM Urine by source source Test data data strip Ketones NEGATIV NEG mg/dL No No Nov 9 E informa informa 2016 [Presen tion in tion in 11:10 ce] in source source PM Urine data data by Automat ed test strip Mucus NEGATIV NEG No No No Nov 9 [Presen E informa informa informa 2017 ce] in tion in tion in tion in 11:10 Urine source source source PM sedimen data data data t by Light microsc opy Nitrite NEGATIV NEG No No No Nov 9 E informa informa informa 2016 [Presen tion in tion in tion in 11:10 ce] in source source source PM Urine data data data by Test strip pH of 5.0 - 8.5 No Normal No Nov 9 Urine informati informati 2017 on in on in 11:10 PM source source data data Protein NEG mg/dL No No Mar 9 [Mass/vol informati informati 2017 ume] in on in on in 11:10 PM Urine by source source Automated data data test strip Specific 1.005 - No Normal No Apr 01 gravity 1.030 informati informati 2017 of Urine on in on in 11:10 PM source source data data Urobili 0.2 NEG E.U./dL No No Apr 01 nogen informa informa 2017 [Presen tion in tion in 11:10 ce] in source source PM Urine data data by Test strip Choriogonadotropin [Units/volume] in Serum or Plasma Observa Value Referen Units Interpr Notes Date tion ce etation Range Choriogon NEG No No Luz Jan 16 adotropin informati informati 2016 on in on in 11:05 AM [Units/vo source source lume] in data data Serum or Plasma Amylase [Enzymatic activity/volume] in Serum or Plasma Observa Value Referen Units Interpr Notes Date ti ce etation Range Amylase 25 - 115 U/L Normal No Jan 16 [Enzymati informati 2016 c on in 11:05 AM activity/ source volume] data in Serum or Plasma Comprehensive metabolic 2000 panel in Serum or Plasma Observa Value Referen Units Interpr Notes Date tion ce etation Range Albumin/G 1.1 - 1.8 No Normal No Jan 16 lobulin informati informati 2016 [Mass on in on in 11:05 AM ratio] in source source Serum or data data Plasma Albumin 3.4 - 5.0 gm/dL Normal No Jan 16 [Mass/vol informati 2016 ume] in on in 11:05 AM Serum or source Plasma data Alkaline 46 - 116 U/L Normal No Jan 16 phosphata informati 2016 se on in 11:05 AM [Enzymati source c data activity/ volume] in Serum or Plasma Bilirubin 0.2 - 1.0 mg/dL High No Jan 16 .total informati 2016 [Mass/vol on in 11:05 AM ume] in source Serum or data Plasma Urea 7 - 18 mg/dL Low No Jan 16 nitrogen informati 2016 [Mass/vol on in 11:05 AM ume] in source Serum or data Plasma Calcium 8.5 - mg/dL Normal No Jan 16 [Mass/vol 10.1 informati 2016 ume] in on in 11:05 AM Serum or source Plasma data Chloride 98 - 107 mmoL/L Normal No Jan 16 [Moles/vo informati 2016 lume] in on in 11:05 AM Serum or source Plasma data Carbon 21.0 - mmoL/L Normal No Jan 16 dioxide, 32.0 informati 2016 total on in 11:05 AM [Moles/vo source lume] in data Serum or Plasma Creatinin 0.55 - mg/dL Normal No Jan 16 e 1.02 inform2016 [Mass/vol on in 11:05 AM ume] in source Serum or data Plasma Creatinin 50 - 200 ML/MIN Normal No Jan 16 e renal informati 2016 clearance on in 11:05 AM source predicted data by Cockcroft -Gault formula Estimated 59- ML/MIN No REFERENCE Jan 16 informati RANGE: 2017 glomerula on in >60 11:05 AM r source ML/MIN/1. filtratio data 73 SQUARE n rate METERSIf (GF this patient is -A merican, then multiply theresult by 1.210. Globulin 1.3 - 3.2 gm/dL High No Jan 16 [Mass/vol informati 2016 ume] in on in 11:05 AM Serum source data Glucose 74 - 106 mg/dL Normal No Jan 16 [Mass/vol informati 2016 ume] in on in 11:05 AM Serum or source Plasma data Potassium 3.5 - 5.1 mmoL/L Normal No Jan 162016 [Moles/vo on in 11:05 AM lume] in source Serum or data Plasma Sodium 136 - 145 mmoL/L Normal No Jan 16 [Moles/vo informati 2016 lume] in on in 11:05 AM Serum or source Plasma data Aspartate 15 - 37 U/L Normal No Jan 162016 aminotran on in 11:05 AM sferase source [Enzymati data c activity/ volume] in Serum or Plasma Alanine 12 - 78 U/L Normal No Jan 16 aminotran 2016 sferase on in 11:05 AM [Enzymati source c data activity/ volume] in Serum or Plasma Protein 6.4 - 8.2 gm/dL Normal No Jan 16 [Mass/vol informati 2016 ume] in on in 11:05 AM Serum or source Plasma data Lipase [Enzymatic activity/volume] in Serum or Plasma Observa Value Referen Units Interpr Notes Date tion ce etation Range Lipase 73 - 393 U/L Normal No Jan 16 [Enzymati 2016 c on in 11:05 AM activity/ source volume] data in Serum or Plasma CBC W Auto Differential panel in Blood Observa Value Referen Units Interpr Notes Date tion ce etation Range Basophils 0 - 0.2 K/MM3 Normal No Jan 162016 [#/volume on in 11:05 AM ] in source Blood by data Automated count Basophils 0.1 - 2.0 % Normal No Jan 16 / inform2016 leukocyte on in 11:05 AM s in source Blood by data Automated count Eosinophi 0.0 - 0.4 K/mm3 Normal No Jan 16 ls inform2016 [#/volume on in 11:05 AM ] in source Blood by data Automated count Eosinophi 0.1 - % Normal No Jan 16 ls/100 12.0 inform2016 leukocyte on in 11:05 AM s in source Blood by data Automated count Granulocy 1.8 - 7.8 K/mm3 Normal No Jan 16 tory 2016 [#/volume on in 11:05 AM ] in source Blood by data Automated count Granulocy 37.0 - % Normal No Jan 16 tory/100 80.0 inform2016 leukocyte on in 11:05 AM s in source Blood by data Automated count Hematocri 37.0 - % Normal No Jan 16 t [Volume 47.0 2016 on in 11:05 AM Fraction] source of Blood data Hemoglobi 12.2 - g/dL Normal No Jan 16 n 16.2 inform2016 [Mass/vol on in 11:05 AM ume] in source Blood data Lymphocyt 0.7 - 4.5 K/mm3 Normal No Jan 16 es inform2016 [#/volume on in 11:05 AM ] in source Unspecifi data ed specimen by Automated count Lymphocyt 10 - 50.0 % Normal No Jan 16 es inform2016 [#/volume on in 11:05 AM ] in source Unspecifi data ed specimen by Automated count Erythrocy 27 - 31.2 pg High No Jan 16 te mean inform2016 corpuscul on in 11:05 AM ar source hemoglobi data n [Entitic mass] Erythrocy 31.8 - g/dl High No Jan 16 te mean 35.4 informati 2016 corpuscul on in 11:05 AM ar source hemoglobi data n concentra tion [Mass/vol ume] by Automated count Erythrocy 82.2 - fl Normal No Jan 16 te mean 97.8 2016 corpuscul on in 11:05 AM ar volume source [Entitic data volume] by Automated count Monocytes 0.1 - 1.0 K/mm3 Normal No Jan 16 inform2016 [#/volume on in 11:05 AM ] in source Blood by data Automated count Monocytes 1.7 - 9.3 % Normal No Jan 16 /100 2016 leukocyte on in 11:05 AM s in source Blood by data Automated count Platelet 7.4 - fl Normal No Jan 16 mean 10.4 inform2016 volume on in 11:05 AM [Entitic source volume] data in Blood by Automated count Platelets 142 - 424 K/mm3 Normal No Jan 16 inform2016 [#/volume on in 11:05 AM ] in source Blood data Erythrocy 4.2 - 5.4 M/mm3 Normal No Jan 16 tory inform2016 [#/volume on in 11:05 AM ] in source Amniotic data fluid Erythrocy 11.5 - % Normal No Jan 16 te 17.5 2016 distribut on in 11:05 AM ion width source [Entitic data volume] by Automated count Leukocyte 4.8 - K/MM3 Normal No Jan 16 s 10.8 2016 [#/volume on in 11:05 AM ] in source Blood data Urease [Presence] in Tissue Observa Value Referen Units Interpr Notes Date ti ce etation Range Urease NEGATIV NL: No No No Jun 20 [Presen E NEGATIV informa informa informa 2016 ce] in E tion in tion in tion in 9:52 AM Tissue source source source data data data Urease NEGATIV NL: No No No Jun 20 [Presen E NEGATIV informa informa informa 2016 ce] in E tion in tion in tion in 9:52 AM Tissue source source source data data data Urease NEGATIV NL: No No No Jun 20 [Presen E NEGATIV informa informa informa 2016 ce] in E tion in tion in tion in 9:52 AM Tissue source source source data data data Urease [Presence] in Tissue Observa Value Referen Units Interpr Notes Date ti ce etation Range Urease NEGATIV NL: No No No Jun 06 [Presen E NEGATIV informa informa informa 2017 ce] in E tion in tion in tion in 2:47 PM Tissue source source source data data data Urease NEGATIV NL: No No No Jun 06 [Presen E NEGATIV informa informa informa 2017 ce] in E tion in tion in tion in 2:47 PM Tissue source source source data data data Urease NEGATIV NL: No No No Jun 06 [Presen E NEGATIV informa informa informa 2016 ce] in E tion in tion in tion in 2:47 PM Tissue source source source data data data Urinalysis dipstick W Reflex Microscopic panel in Urine Observa Value Referen Units Interpr Notes Date tion ce etation Range Color YELLOW NL: No No No May 19 of Negativ informa informa informa 2016 Urine e tion in tion in tion in 3:34 PM source source source data data data Appeara CLEAR NL: No No No May 19 nce of Negativ informa informa informa 2016 Urine e tion in tion in tion in 3:34 PM source source source data data data Glucose NEG NL: No No No May 19 Negativ informa informa informa 2016 [Mass/v e tion in tion in tion in 3:34 PM olume] source source source in data data data Urine by Test strip Bilirub 1+ NL: No Abnorma No May 19 in Negativ informa l informa 2016 [Presen e tion in tion in 3:34 PM ce] in source source Urine data data by Test strip Ketones TRACE NL: No No No May 19 Negativ informa informa informa 2016 [Presen e tion in tion in tion in 3:34 PM ce] in source source source Serum data data data or Plasma Specifi >=1.030 NL: No No No May 19 c 1.00 >= informa informa informa 2016 gravity 1.030 tion in tion in tion in 3:34 PM of source source source Urine data data data Hemoglo TRACE-L NL: No No No May 19 bin Y Negativ informa informa informa 2016 [Presen e tion in tion in tion in 3:34 PM ce] in source source source Urine data data data by Test strip pH of 5.5 NL: No No No May 19 Urine informa informa informa 2016 by Test tion in tion in tion in 3:34 PM strip source source source data data data Protein 2+ NL: No Abnorma No May 19 Negativ informa l informa 2016 [Presen e tion in tion in 3:34 PM ce] in source source Urine data data by Test strip Urobili 0.2 NL: 0.2 No No No May 19 nogen - 1.0 informa informa informa 2016 [Mass/v tion in tion in tion in 3:34 PM olume] source source source in data data data Urine by Test strip Nitrite NEG NL: No No No May 19 Negativ informa informa informa 2016 [Presen e tion in tion in tion in 3:34 PM ce] in source source source Urine data data data by Test strip Leukocy NEG NL: No No { May 19 tory Negativ informa informa MICROSC 2016 [#/volu e tion in tion in OPIC 3:34 PM me] in source source Blood data data See by Below Automat ed count Additio C CATCH No No No No May 19 nal informa informa informa informa 2016 comment tion in tion in tion in tion in 3:34 PM s RFC source source source source data data data data CULTURE NOT No No No No May 19 SETUP INDIC informa informa informa informa 2016 tion in tion in tion in tion in 3:34 PM source source source source data data data data Comprehensive metabolic 1998 panel in Serum or Plasma Observa Value Referen Units Interpr Notes Date tion ce etation Range Sodium 140 136 - mmol/L No No May 19 [Moles/ 145 informa informa 2016 volume] tion in tion in 3:32 PM in source source Serum data data or Plasma Potassi 4.0 3.5 - mmol/L No No May 19 um 5.1 informa informa 2016 [Moles/ tion in tion in 3:32 PM volume] source source in data data Serum or Plasma Chlorid 103 98 - mmol/L No No May 19 e 107 informa informa 2016 [Moles/ tion in tion in 3:32 PM volume] source source in data data Serum or Plasma Carbon 25 21 - 32 mmol/L No May 19 dioxide informa informa 2016 , total tion in tion in 3:32 PM source source [Moles/ data data volume] in Blood Anion 16 5 - 15 mmol/L High No May 19 gap in informa 2016 Serum tion in 3:32 PM or source Plasma data Glucose 108 70 - mg/dl No May 19 120 informa informa 2016 [Mass/v tion in tion in 3:32 PM olume] source source in data data Serum or Plasma Urea 13 7 - 18 mg/dl No May 19 nitroge informa informa 2016 n tion in tion in 3:32 PM [Mass/v source source olume] data data in Serum or Plasma Creatin 0.7 0.6 - mg/dl No May 19 ine 1.3 informa informa 2016 [Mass/v tion in tion in 3:32 PM olume] source source in data data Serum or Plasma AGE 35 No yrs No May 19 informa informa informa 2016 tion in tion in tion in 3:32 PM source source source data data data GFR >60 No ml/min No May 19 informa informa informa 2016 tion in tion in tion in 3:32 PM source source source data data data Urea 19 6 - 25 ratio No May 19 nitroge informa informa 2016 n/Creat tion in tion in 3:32 PM inine source source [Mass data data ratio] in Serum or Plasma Osmolal 280 272 - No No May 19 ity of 295 informa informa informa 2016 Unspeci tion in tion in tion in 3:32 PM fied source source source specime data data data n Calcium 8.7 8.5 - mg/dl No May 19 10.1 informa informa 2016 [Mass/v tion in tion in 3:32 PM olume] source source in data data Serum or Plasma Bilirub 0.7 0.2 - mg/dl No May 19 in.tota 1.0 informa informa 2016 l tion in tion in 3:32 PM [Mass/v source source olume] data data in Serum or Plasma Asparta 16 15 - 37 IU/L No May 19 te informa informa 2016 aminotr tion in tion in 3:32 PM ansfera source source se data data [Enzyma tic activit y/volum e] in Serum or Plasma Alanine 34 12 - 78 IU/L No No May 19 informa informa 2016 aminotr tion in tion in 3:32 PM ansfera source source se data data [Enzyma tic activit y/volum e] in Serum or Plasma Alkalin 105 46 - IU/L No No May 19 e 116 informa informa 2015 phospha tion in tion in 3:32 PM tase source source [Enzyma data data tic activit y/volum e] in Serum or Plasma Protein 7.9 6.4 - g/dl No No May 19 8.2 informa informa 2015 [Mass/v tion in tion in 3:32 PM olume] source source in data data Serum or Plasma Albumin 4.2 3.4 - g/dl No No May 19 5.0 informa informa 2015 [Mass/v tion in tion in 3:32 PM olume] source source in data data Serum or Plasma Albumin 3.7 1.3 - g/dl High No May 19 /Globul 3.5 informa 2016 in tion in 3:32 PM [Mass source ratio] data in Serum or Plasma Albumin 1.1 1.0 - ratio No GLOMERU May 19 /Globul 3.9 informa LAR 2016 in tion in FILTRAT 3:32 PM [Mass source ION ratio] data RATE in INTERPR Serum ETATION or Normal Plasma Range: >60 mL/min/ 1.73 sq metersI f patient is Michelle n, multipl y GFR by 1.120.* GFR only applies to adults over the age 18. Platelet; Plt; Thrombocytes; Platelt; Thrb; Thrombocyte; Diff Pnl; Point in time Observa Value Referen Units Interpr Notes Date tion ce etation Range Leukocy 16.6 4.5 - K/uL High No May 19 tory 11.5 inform2015 [#/volu tion in 3:19 PM me] in source Blood data by Automat ed count Microbi OH No No No No May 19 ology M. informa informa informa informa 2016 studies @1457 tion in tion in tion in tion in 3:19 PM (set) source source source source 6 LMM data data data data Erythro 4.70 4.00 - M/uL No May 19 cytes 5.40 informa informa 2016 [#/volu tion in tion in 3:19 PM me] in source source Blood data data by Automat ed count Hemoglo 15.1 12.0 - g/dL High No May 19 bin 15.0 informa 2015 [Mass/v tion in 3:19 PM olume] source in data Blood Hematoc 42 35 - 49 % No May 19 rit informa informa 2016 [Volume tion in tion in 3:19 PM source source Fractio data data n] of Blood by Automat ed count Erythro 89.1 80.0 - fL No May 19 cyte 100 informa informa 2016 mean tion in tion in 3:19 PM corpusc source source ular data data volume [Entiti c volume] by Automat ed count Erythro 32.1 26.0 - pg High No May 19 cyte 32.0 informa 2015 mean tion in 3:19 PM corpusc source ular data hemoglo bin [Entiti c mass] by Automat ed count Erythro 36.0 32.0 - g/dL No May 19 cyte 36.0 informa informa 2016 mean tion in tion in 3:19 PM corpusc source source ular data data hemoglo bin concent ration [Mass/v olume] in Blood from Fetus by Automat ed count Erythro 12.8 11.5 - % No May 19 cyte 14.5 informa informa 2016 distrib tion in tion in 3:19 PM ution source source width data data [Ratio] by Automat ed count Platele 277 150 - K/uL No May 19 ts 450 informa informa 2016 [#/volu tion in tion in 3:19 PM me] in source source Blood data data by Automat ed count Manual SEE No No No May 19 differe BELOW informa informa informa informa 2016 ntial tion in tion in tion in tion in 3:19 PM perform source source source source ed data data data data [Presen ce] in Blood Neutrop 92 40 - 75 % High No May 19 hils.se informa 2016 gmented tion in 3:19 PM source [#/volu data me] in Blood by Manual count BANDS 2 0 - 5 % No No May 19 informa informa 2016 tion in tion in 3:19 PM source source data data Lymphoc 2 16 - 46 % Low No May 19 ytes/10 informa 2016 0 tion in 3:19 PM leukocy source tory in data Blood Monocyt 4 0 - 12 % No No May 19 es informa informa 2016 [#/volu tion in tion in 3:19 PM me] in source source Blood data data Platele ADEQUAT No No No No May 19 ts E informa informa informa informa 2016 [Presen tion in tion in tion in tion in 3:19 PM ce] in source source source source Blood data data data data by Light microsc opy Erythro NORMAL No No No No May 19 cyte informa informa informa informa 2016 morphol tion in tion in tion in tion in 3:19 PM ogy source source source source finding data data data data [Identi fier] in Blood Influenza virus A\T\B Ag Observa Value Referen Units Interpr Notes Date tion ce etation Range _INFLUENZA ANTIGEN A + B_ Influen NEGATIV No [NL:_NE No No Apr 23 za E informa GAT informa informa 2016 virus A tion in tion in tion in 1:08 AM Ag source source source [Presen data data data ce] in Unspeci fied specime n Influen NEGATIV No [NL:_NE No No Apr 23 za E informa GAT informa informa 2016 virus B tion in tion in tion in 1:08 AM Ag source source source [Presen data data data ce] in Unspeci fied specime n XR CHEST AP LA Observa Value Referen Units Interpr Notes Date tion ce etation Range XR \.br\ No No No No Apr 23 CHEST informa informa informa informa 2016 AP LA tion in tion in tion in tion in 12:41 source source source source AM data data data data [facility] L\.br\ [address]\.br \ [place], [facility] [place] [address]\. br\\.br \ ------- --NAME- ------- - NUMBER SEX AGE ADMIT DISC. XRAY# F/C TYPE\.b r\ MARIAM ANTOINETTE [id number] F 36 6 6 [id number] XWB E/R\.br \ DATE OF : [birth year] M/R# [id number] #: RM EROOO\. br\ LOCATIO N: TRANSCR IBED: 6 9:03\.b r\ [place] [id number] COMPLET ED: 06/08 1:04 BLM 03015\. br\ {REASON FOR CHEST: COUGH\. br\\.br \ PHYSICI AN: DIAZ JAMAR BLAIR GLE\.br \\.br\\ .br\=== ======= ======= ======= ======= ======= ======= ======= ======= ======= ======= ======\ .br\ RADIOLO GY REPORT\ .br\=== ======= ======= ======= ======= ======= ======= ======= ======= ======= ======= ======\ .br\ORD ER DATE and TIME: 016 0041\.b r\\.br\ \.br\PA AND LATERAL CHEST, 04/23/20 16:\.br \\.br\C LINICAL HISTORY : Cough with chest congest ion and vomitin g.\.br\ \.br\CO MPARISO N: PA and lateral chest, 09/03/19 16\.br\ \.br\FI NDINGS: The cardiom ediasti nal silhoue tte is within normal limits. The lungs\. br\are clear bilater ally without pleural fluid or focal consoli dation. There are\.br \mild endplat e osteoph ytes of the mid to lower thoraci c spine.\ .br\\.b r\IMPRE SSION:\ .br\\.b r\1. Stable chest without evidenc e of acute cardiop ulmonar y disease .\.br\\ .br\\.b r\Elect ronical ly Signed By:\.br \IDA NYE MD,RADI OLOGIST \.br\Da te/Time : 6 09:03\. br\ Creatine kinase.MB [Mass/volume] in Serum or Plasma Observa Value Referen Units Interpr Notes Date tion ce etation Range Creatin 0.4 0.0 - ng/ml No No Aug 12 e 3.6 informa informa 2016 kinase. tion in tion in 5:27 AM MB source source [Mass/v data data olume] in Serum or Plasma Creatin 46 21 - U/L No No Sep 02 e 215 informa informa 2016 kinase tion in tion in 5:27 AM [Enzyma source source tic data data activit y/volum e] in Serum or Plasma Creatin 1 0 - 4 % No MMB Sep 02 e informa (ng/ml) 2016 kinase. tion in 5:27 AM MB/Crea source mp data Relativ kinase. e total IndexNO in N AMI Serum or </= Plasma 5.0 by calcula tion NAGRAY ZONE > 5.0 </= 4.0AMI > 5.0 > 4.0RELA TIVE INDEX NOT AVAILAB LE ON PATIENT S W/EMPERATRIZ L CKMB Troponin I.cardiac [Mass/volume] in Serum or Plasma Observa Value Referen Units Interpr Notes Date tion ce etation Range Troponi 0.00 0.00 - ng/ml No No Aug 12 n 0.05 informa informa 2016 I.cardi tion in tion in 5:20 AM ac source source [Mass/v data data olume] in Serum or Plasma Additio NO No No No 0 - Aug 12 nal informa informa informa 0.059 2016 comment tion in tion in tion in ng/ml 5:20 AM s RFC source source source (NEGATI data data data VE)> 0.059 ng/ml (POSITI VE) CBC W DIFF AUTOMATED Observa Value Referen Units Interpr Notes Date tion ce etation Range Leukocy 7.7 4.5 - K/uL No No Sep 02 tory 11.5 informa informa 2015 [#/volu tion in tion in 5:08 AM me] in source source Blood data data by Automat ed count Erythro 3.98 4.00 - M/uL Low No Sep 02 cytes 5.40 informa 2015 [#/volu tion in 5:08 AM me] in source Blood data by Automat ed count Hemoglo 13.0 12.0 - g/dL No No Sep 02 bin 15.0 informa informa 2015 [Mass/v tion in tion in 5:08 AM olume] source source in data data Blood Hematoc 36 35 - 49 % No No Sep 02 rit informa informa 2016 [Volume tion in tion in 5:08 AM source source Fractio data data n] of Blood by Automat ed count Erythro 90.5 80.0 - fL No No Sep 02 cyte 100 informa informa 2015 mean tion in tion in 5:08 AM corpusc source source ular data data volume [Entiti c volume] by Automat ed count Erythro 32.7 26.0 - pg High No Sep 02 cyte 32.0 informa 2015 mean tion in 5:08 AM corpusc source ular data hemoglo bin [Entiti c mass] by Automat ed count Erythro 36.1 32.0 - g/dL High No Sep 02 cyte 36.0 informa 2015 mean tion in 5:08 AM corpusc source ular data hemoglo bin concent ration [Mass/v olume] in Blood from Fetus by Automat ed count Erythro 12.4 11.5 - % No No Sep 02 cyte 14.5 informa informa 2016 distrib tion in tion in 5:08 AM ution source source width data data [Ratio] by Automat ed count Platele 240 150 - K/uL No No Sep 02 ts 450 informa informa 2016 [#/volu tion in tion in 5:08 AM me] in source source Blood data data by Automat ed count Lymphoc 31.3 18.0 - % No No Sep 02 ytes/10 42.0 informa informa 2016 0 tion in tion in 5:08 AM leukocy source source tory in data data Blood by Automat ed count Monocyt 8.4 2.0 - % No No Aug 12 es/100 11.0 informa informa 2016 leukocy tion in tion in 5:08 AM tory in source source Blood data data by Automat ed count Neutrop 58.7 50.0 - % No No Aug 12 hils.ba 70.0 informa informa 2016 nd tion in tion in 5:08 AM form/10 source source 0 data data leukocy tory in Blood by Manual count Eosinop 1.20 1.00 - % No No Aug 12 hils/10 3.00 informa informa 2016 0 tion in tion in 5:08 AM leukocy source source tory in data data Blood by Automat ed count Basophi 0.40 0.00 - % No No Aug 12 ls/100 2.00 informa informa 2016 leukocy tion in tion in 5:08 AM tory in source source Blood data data by Automat ed count Lymphoc 2.42 0.60 - K/uL No No Sep 02 ytes/10 3.40 informa informa 2016 0 tion in tion in 5:08 AM leukocy source source tory in data data Blood by Automat ed count Monocyt 0.65 0.00 - K/uL No No Aug 12 es/100 0.90 informa informa 2016 leukocy tion in tion in 5:08 AM tory in source source Blood data data by Automat ed count Neutrop 4.54 2.00 - K/uL No No Aug 12 hils.ba 6.90 informa informa 2016 nd tion in tion in 5:08 AM form/10 source source 0 data data leukocy tory in Blood by Manual count Eosinop 0.09 0.00 - K/uL No No Aug 12 hils/10 0.70 informa informa 2016 0 tion in tion in 5:08 AM leukocy source source tory in data data Blood by Automat ed count Basophi 0.03 0.00 - K/uL No No Aug 12 ls/100 0.20 informa informa 2016 leukocy tion in tion in 5:08 AM tory in source source Blood data data by Automat ed count Manual NOT No No No No Apr 12 differe INDICAT informa informa informa informa 2016 ntial ED tion in tion in tion in tion in 5:08 AM perform source source source source ed data data data data [Presen ce] in Blood Microscopic observation [Identifier] in Sputum by Gram stain Observa Value Referen Units Interpr Notes Date tion ce etation Range _GRAM STAIN/SPUTUM_ RESULTS: _<25_WBCs/LPF_&_>10_EPIs/LPF 09/03/15.0356.CAM. CULTURE CRITERIA FOR SPUTUM: ACCEPTABLE = GREATER THAN 25 WBC/LPF LESS THAN 10 EPITHELIAL CELLS/LPF Additio NO No No No No Sep 02 nal informa informa informa informa 2016 comment tion in tion in tion in tion in 3:57 AM s RFC source source source source data data data data Additio YES No No No No Sep 02 nal informa informa informa informa 2016 comment tion in tion in tion in tion in 3:57 AM s RFC source source source source data data data data Creatine kinase.MB [Mass/volume] in Serum or Plasma Observa Value Referen Units Interpr Notes Date tion ce etation Range Creatin 0.5 0.0 - ng/ml No No Sep 01 e 3.6 informa informa 2016 kinase. tion in tion in 11:28 MB source source PM [Mass/v data data olume] in Serum or Plasma Creatin 55 21 - U/L No No Sep 01 e 215 informa informa 2016 kinase tion in tion in 11:28 [Enzyma source source PM tic data data activit y/volum e] in Serum or Plasma Creatin 1 0 - 4 % No MMB Sep 01 e informa (ng/ml) 2016 kinase. tion in 11:28 MB/Crea source PM mp data Relativ kinase. e total IndexNO in N AMI Serum or </= Plasma 5.0 by calcula tion NAGRAY ZONE > 5.0 </= 4.0AMI > 5.0 > 4.0RELA TIVE INDEX NOT AVAILAB LE ON PATIENT S W/EMPERATRIZ L CKMB Troponin I.cardiac [Mass/volume] in Serum or Plasma Observa Value Referen Units Interpr Notes Date tion ce etation Range Troponi 0.01 0.00 - ng/ml No No Aug 11 n 0.05 informa informa 2016 I.cardi tion in tion in 11:24 ac source source PM [Mass/v data data olume] in Serum or Plasma Additio NO No No No 0 - Sep 01 nal informa informa informa 0.059 2016 comment tion in tion in tion in ng/ml 11:24 s RFC source source source (NEGATI PM data data data VE)> 0.059 ng/ml (POSITI VE) CTA CHEST WITH or WITHOUT Observa Value Referen Units Interpr Notes Date tion ce etation Range CTA No No No No Sep 01 CHEST informa informa informa informa 2016 WITH or tion in tion in tion in tion in 6:09 PM source source source source WITHOUT data data data data [facility]br\ [address]br \ [place] [address]\. br\\.br \ RADIOLO GY REPORT\ .br\ Name: MARIAM CURRY\ .br\ Patient #: [id number] Stay Type: OBSERV\ .br\ Age: 34 Room: 250\.br \ : 980 Sex: F\.br\ Orderin g Phys: ROSSY GLE MR#: [id number]\. br\ Family Phys: ROSSY GLE Pt Phone: [phone] /[phone]\. br\ Admitti ng Phys: ROSSY GLE\.br \ Unsig chioma Transcr iptions represe nt a prelimi nary report and do\.br\ not reflect a medical or legal documen t.\.b r\\.br\ CTA CHEST WITH or WITHOUT [id number] COMPLET E:09/01 18:59 BLM [id number]\. br\ Diagnos is: SOA\.br \\.br\\ .br\\.b r\ HISTORY : 34-year -old female with shortne ss of breath. \.br\\. br\ TECHNIQ UE: After the adminis tration of intrave alejandrous contras t, helical CT data was acquire d in\.br\ the axial plane through the chest. Images were rendere d in 2.5 mm thick contigu ous axial and\.br \ coronal section s. In additio n, maximum intensi ty project s in images in the coronal plane were\.b r\ created from the axial data. Automat ed exposur e control was employe d to reduce the radiati on\.br\ dose to the patient .\.br\ COMPARI SON: None.\. br\\.br \ FINDING S: Adequat e opacifi cation of the pulmona ry arterie s. No pulmona ry embolis m is\.br\ identif ied. Mildly enlarge d precari nal node. Measure s 1.4 x 1.2 cm. Mildly enlarge d right hilar\. br\ node. Measure s 1.6 x 1.0 cm. Calcifi ed left hilar nodes, indicat callie of old granulo matous disease .\.br\ Small amount of residua l thymic tissue in the anterio r mediast inum. The heart size is normal. No\.br\ signifi cant pericar dial fluid/t hickeni ng. No pleural fluid.\ .br\ Visuali zed portion s of the upper abdomen include d in this examina tion of the chest reveal\ .br\ cholecy stectom y clips. Mild subsequ ent promine nce of the partial ly visuali zed biliary tree.\. br\ Lung window images reveal minimal mosaic attenua tion of the right lower lobe, of doubtfu l\.br\ clinica l signifi cance. No consoli dation or signifi cant ground glass. 3 mm pulmona ry nodule of the\.br \ right upper lobe on image #24.\.b r\ Bone window images reveal no aggress callie lytic or sclerot ic bone lesions .\.br\\ .br\ IMPRESS ION:\.b r\ No acute abnorma lities are identif ied in the chest.\ .br\ No pulmona ry embolis m is identif ied.\.b r\ Mild mediast inal and right hilar adenopa thy and 3 mm pulmona ry nodule of the right upper\. br\ lobe, probabl y seconda ry to old granulo matous disease . However , follow- up routine CT\.br\ chest in 3 months is recomme nded to show stabili ty.\.br \\.br\ Electro nically reviewe d and signed by:\.br \ ELEANOR NYE MD\.br\ RADIOLO GIST/ 10:12\. br\\.br \ Dictati on Date/Ti me: 09/02/15 19:18 Dictate d By: Nitin LUO MD RADIOLO GIST\.b r\ [facility]\.br\ [address]br \ [place] [address]\. br\\.br \ RADIOLO GY REPORT\ .br\ Name: MARIAM CURRY\ .br\ Patient #: [id number] Stay Type: OBSERV\ .br\ Age: 34 Room: 250\.br \ : 980 Sex: F\.br\ Orderin g Phys: ROSSY ROMANO MR#: [id number]\. br\ Family Phys: ROSSY GLE Pt Phone: [phone] /[phone]\. br\ Admitti ng Phys: ROSSY GLE\.br \ Unsig chioma Transcr iptions represe nt a prelimi nary report and do\.br\ not reflect a medical or legal documen t.\.b r\\.br\ CTA CHEST WITH or WITHOUT [id number] COMPLET E:09/01 18:59 BLM [id number]\. br\ Diagnos is: SOA\.br \\.br\ Transcr . Date/Ti me: 09/03/15 / 07:09 Transcr . Init.: amh\.br \\.br\ Copy for: ROSSY OBRIEN R via link\.b r\ DISCHAR GED\.br \\.br\ Bacteria identified in Blood by Culture Observa Value Referen Units Interpr Notes Date tion ce etation Range _CULTURE BLOOD_ STATUS PRELIMI No No No No Aug 16 NARY informa informa informa informa 2016 tion in tion in tion in tion in 7:53 PM source source source source data data data data RESULT NO No No No No Aug 16 GROWTH informa informa informa informa 2016 AT 1 tion in tion in tion in tion in 7:53 PM DAY source source source source data data data data RESULTE EHB No No No No Aug 16 D BY informa informa informa informa 2016 tion in tion in tion in tion in 7:53 PM source source source source data data data data SEND Y No No No Sep 06 PHARM/I informa informa informa 2016 C tion in tion in tion in 7:53 PM source source source data data data STATUS FINAL No No No No Sep 06 informa informa informa informa 2016 tion in tion in tion in tion in 7:53 PM source source source source data data data data RESULT NO No No No No Sep 06 GROWTH informa informa informa informa 2016 5 DAYS tion in tion in tion in tion in 7:53 PM source source source source data data data data RESULTE CAM No No No No Aug 16 D BY informa informa informa informa 2016 tion in tion in tion in tion in 7:53 PM source source source source data data data data SEND Y No No No No Sep 06 PHARM/I informa informa informa informa 2016 C tion in tion in tion in tion in 7:53 PM source source source source data data data data SEND TO N No No No Sep 06 ER informa informa informa . 2016 tion in tion in tion in CAM.COM 7:53 PM source source source PLETE data data data /1952.CA M.to ROSSY ROMANO via link Bacteria identified in Blood by Culture Observa Value Referen Units Interpr Notes Date tion ce etation Range _CULTURE BLOOD_ STATUS PRELIMI No No No No Sep 06 NARY informa informa informa informa 2016 tion in tion in tion in tion in 7:53 PM source source source source data data data data RESULT NO No No No No Sep 06 GROWTH informa informa informa informa 2016 AT 1 tion in tion in tion in tion in 7:53 PM DAY source source source source data data data data RESULTE EHB No No No No Aug 16 D BY informa informa informa informa 2016 tion in tion in tion in tion in 7:53 PM source source source source data data data data SEND Y No No No Sep 06 PHARM/I informa informa informa 2016 C tion in tion in tion in 7:53 PM source source source data data data STATUS FINAL No No No No Sep 06 informa informa informa informa 2016 tion in tion in tion in tion in 7:53 PM source source source source data data data data RESULT NO No No No No Sep 06 GROWTH informa informa informa informa 2016 5 DAYS tion in tion in tion in tion in 7:53 PM source source source source data data data data RESULTE CAM No No No No Sep 06 D BY informa informa informa informa 2016 tion in tion in tion in tion in 7:53 PM source source source source data data data data SEND Y No No No No Sep 06 PHARM/I informa informa informa informa 2016 C tion in tion in tion in tion in 7:53 PM source source source source data data data data SEND TO N No No No Sep 06 ER informa informa informa . 2016 tion in tion in tion in CAM.COM 7:53 PM source source source [id number] data data data /1952.CA M.to ROSSY ROMANO via link Creatine kinase.MB [Mass/volume] in Serum or Plasma Observa Value Referen Units Interpr Notes Date tion ce etation Range Creatin 1.1 0.0 - ng/ml No No Aug 11 e 3.6 informa informa 2016 kinase. tion in tion in 6:08 PM MB source source [Mass/v data data olume] in Serum or Plasma Creatin 63 21 - U/L No No Aug 11 e 215 informa informa 2016 kinase tion in tion in 6:08 PM [Enzyma source source tic data data activit y/volum e] in Serum or Plasma Creatin 2 0 - 4 % No MMB Apr 11 e informa (ng/ml) 2016 kinase. tion in 6:08 PM MB/Crea source mp data Relativ kinase. e total IndexNO in N AMI Serum or </= Plasma 5.0 by calcula tion NAGRAY ZONE > 5.0 </= 4.0AMI > 5.0 > 4.0RELA TIVE INDEX NOT AVAILAB LE ON PATIENT S W/EMPERATRIZ L CKMB Myoglobin [Mass/volume] in Serum or Plasma Observa Value Referen Units Interpr Notes Date tion ce etation Range Myoglob 21 10 - 92 ng/ml No No Sep 01 in informa informa 2016 [Mass/v tion in tion in 6:08 PM olume] source source in data data Serum or Plasma Natriutietic peptide B [Mass/volume] in Serum or Plasma Observa Value Referen Units Interpr Notes Date tion ce etation Range Natriut 29 0 - 131 pg/ml No No Sep 01 ietic informa informa 2016 peptide tion in tion in 6:07 PM B source source [Mass/v data data olume] in Serum or Plasma Additio NO No No No This Sep 01 nal informa informa informa 2016 comment tion in tion in tion in analyte 6:07 PM s RFC source source source has data data data conside rable variabi lity in patient s without knownhe art disease and for this reason it is difficu lt to assign strictr eferenc e ranges that would account for all circums tances. NT-proB LITERACY COACH can show substan tial increas es in patient s without heartfa ilure with increas ing age and advanci ng renal insuffi ciency; malesin general have somewha t higher values than females . There are otherca uses of increas ed NT-proB LITERACY COACH not related to congest callie heartfa ilure also. For use as a screeni ng test, values less than 131pg/m lare recomme nded below the age of 75. For patient s 75 years andolde r, a cutoff of 450pg/n l is recomme nded. * Lipid 1996 panel in Serum or Plasma Observa Value Referen Units Interpr Notes Date tion ce etation Range Triglyc 43 1 - 150 mg/dL No No Sep 01 eride informa inform2015 [Mass/v tion in tion in 5:53 PM olume] source source in data data Serum or Plasma Cholest 138 0 - 200 mg/dL No No Sep 01 lakia informa inform2015 [Mass/v tion in tion in 5:53 PM olume] source source in data data Serum or Plasma Cholest 59 35 - 60 mg/dl No No Sep 01 lakia in informa inform2015 HDL tion in tion in 5:53 PM [Mass/v source source olume] data data in Serum or Plasma Cholest 70 0 - 130 mg/dl No No Sep 01 lakia in informa inform2015 LDL tion in tion in 5:53 PM [Mass/v source source olume] data data in Serum or Plasma by calcula tion Cholest 2.34 0.00 - ratio No No Sep 01 lakia.to 4.44 2015 virginia/Cho tion in tion in 5:53 PM lestero source source l in data data HDL [Mass ratio] in Serum or Plasma Fibrin D-dimer FEU [Mass/volume] in Platelet poor plasma Observa Value Referen Units Interpr Notes Date tion ce etation Range Fibrin 0.22 0.19 - mg/L_FE No QUANTIT Sep 01 D-dimer 0.59 U AT2015 FEU tion in D-DIMER 5:53 PM [Mass/v source olume] data INTERPR in ETATION Platele [CLINIC t poor AL plasma CUTOFF = <0.5 mg/L]Wh en combine d with a low clinica l probabi lity (Wells Score), D-Dimer results below the clinica l cutoff (<0.5 mg/L) have excelle nt negativ epredic tive value in excludi ng the diagnos is of acute PE or DVT. However ,a thrombo embolic event cannot be exclude d solely on the basis of theD-Di lazaro level being within referen ce range.D -Dimers may also be elevate d for a variety of disorde rs includi ng:old age, pregnan cy, coronar y disease , cancer, liver disease , infecti on,infl amation , hematom a, DIC, trauma, post-kellogg rgery, diabete s, thrombo lyticth erapy, stress, and hospita lizatio n. D-Dimer levels may be decreas ed inpatie nts on anti-co agulant therapy .Patien ts with a high clinica l probabi lity should not be exclude d without confirm atory radiolo gical or vascula r procedu res. Thyrotropin [Units/volume] in Serum or Plasma by Detection limit <= 0.05 mIU/L Observa Value Referen Units Interpr Notes Date tion ce etation Range Thyrotr 0.64 0.36 - uIU/mL No No Sep 01 opin 3.74 informa informa 2016 [Units/ tion in tion in 5:53 PM volume] source source in data data Serum or Plasma by Detecti on limit <= 0.05 mIU/L Comprehensive metabolic 1998 panel in Serum or Plasma Observa Value Referen Units Interpr Notes Date tion ce etation Range Sodium 138 136 - mmol/L No No Sep 01 [Moles/ 145 informa informa 2016 volume] tion in tion in 5:52 PM in source source Serum data data or Plasma Potassi 3.6 3.5 - mmol/L No Sep 01 um 5.1 informa informa 2016 [Moles/ tion in tion in 5:52 PM volume] source source in data data Serum or Plasma Chlorid 101 98 - mmol/L No No Sep 01 e 107 informa informa 2016 [Moles/ tion in tion in 5:52 PM volume] source source in data data Serum or Plasma Carbon 29 21 - 32 mmol/L No No Sep 01 dioxide informa informa 2016 , total tion in tion in 5:52 PM source source [Moles/ data data volume] in Blood Anion 12 5 - 15 mmol/L No No Sep 01 gap in informa informa 2016 Serum tion in tion in 5:52 PM or source source Plasma data data Glucose 85 70 - mg/dl No No Sep 01 120 informa informa 2016 [Mass/v tion in tion in 5:52 PM olume] source source in data data Serum or Plasma Urea 7 7 - 18 mg/dl No No Sep 01 nitroge informa informa 2016 n tion in tion in 5:52 PM [Mass/v source source olume] data data in Serum or Plasma Creatin 0.5 0.6 - mg/dl Low No Sep 01 ine 1.3 informa 2016 [Mass/v tion in 5:52 PM olume] source in data Serum or Plasma AGE 34 No yrs No No Sep 01 informa informa informa 2016 tion in tion in tion in 5:52 PM source source source data data data GFR >60 No ml/min No No Sep 01 informa informa informa 2016 tion in tion in tion in 5:52 PM source source source data data data Urea 14 6 - 25 ratio No No Sep 01 nitroge informa informa 2016 n/Creat tion in tion in 5:52 PM inine source source [Mass data data ratio] in Serum or Plasma Osmolal 273 272 - No No No Sep 01 ity of 295 informa informa informa 2016 Unspeci tion in tion in tion in 5:52 PM fied source source source specime data data data n Calcium 8.7 8.5 - mg/dl No No Sep 01 10.1 informa informa 2016 [Mass/v tion in tion in 5:52 PM olume] source source in data data Serum or Plasma Bilirub 0.6 0.2 - mg/dl No No Sep 01 in.tota 1.0 informa informa 2016 l tion in tion in 5:52 PM [Mass/v source source olume] data data in Serum or Plasma Asparta 14 15 - 37 IU/L Low No Sep 01 te informa 2016 aminotr tion in 5:52 PM ansfera source se data [Enzyma tic activit y/volum e] in Serum or Plasma Alanine 39 12 - 78 IU/L No No Sep 01 informa informa 2016 aminotr tion in tion in 5:52 PM ansfera source source se data data [Enzyma tic activit y/volum e] in Serum or Plasma Alkalin 78 46 - IU/L No No Aug 11 e 116 informa informa 2016 phospha tion in tion in 5:52 PM tase source source [Enzyma data data tic activit y/volum e] in Serum or Plasma Protein 7.2 6.4 - g/dl No No Aug 11 8.2 informa informa 2016 [Mass/v tion in tion in 5:52 PM olume] source source in data data Serum or Plasma Albumin 4.0 3.4 - g/dl No No Aug 11 5.0 informa informa 2015 [Mass/v tion in tion in 5:52 PM olume] source source in data data Serum or Plasma Albumin 3.2 1.3 - g/dl No No Aug 11 /Globul 3.5 informa informa 2016 in tion in tion in 5:52 PM [Mass source source ratio] data data in Serum or Plasma Albumin 1.3 1.0 - ratio No GLOMERU Sep 01 /Globul 3.9 informa LAR 2015 in tion in FILTRAT 5:52 PM [Mass source ION ratio] data RATE in INTERPR Serum ETATION or Normal Plasma Range: >60 mL/min/ 1.73 sq metersI f patient is Michelle n, multipl y GFR by 1.120.* GFR only applies to adults over the age 18. Troponin I.cardiac [Mass/volume] in Serum or Plasma Observa Value Referen Units Interpr Notes Date tion ce etation Range Troponi 0.01 0.00 - ng/ml No No Sep 01 n 0.05 informa informa 2016 I.cardi tion in tion in 5:43 PM ac source source [Mass/v data data olume] in Serum or Plasma Additio YES No No No No Sep 01 nal informa informa informa informa 2016 comment tion in tion in tion in tion in 5:43 PM s RFC source source source source data data data data Microbi MDA TO No No No 0 - Sep 01 ology ROHIT T informa informa informa 0.059 2016 studies tion in tion in tion in ng/ml 5:43 PM (set) 6 1750 source source source (NEGATI data data data VE)> 0.059 ng/ml (POSITI VE) CBC W DIFF AUTOMATED Observa Value Referen Units Interpr Notes Date tion ce etation Range Leukocy 9.3 4.5 - K/uL No No Sep 01 tory 11.5 informa informa 2015 [#/volu tion in tion in 5:25 PM me] in source source Blood data data by Automat ed count Erythro 4.24 4.00 - M/uL No No Sep 01 cytes 5.40 informa informa 2015 [#/volu tion in tion in 5:25 PM me] in source source Blood data data by Automat ed count Hemoglo 13.7 12.0 - g/dL No No Sep 01 bin 15.0 informa informa 2015 [Mass/v tion in tion in 5:25 PM olume] source source in data data Blood Hematoc 38 35 - 49 % No No Sep 01 rit informa informa 2016 [Volume tion in tion in 5:25 PM source source Fractio data data n] of Blood by Automat ed count Erythro 89.6 80.0 - fL No No Sep 01 cyte 100 informa informa 2016 mean tion in tion in 5:25 PM corpusc source source ular data data volume [Entiti c volume] by Automat ed count Erythro 32.3 26.0 - pg High No Sep 01 cyte 32.0 informa 2015 mean tion in 5:25 PM corpusc source ular data hemoglo bin [Entiti c mass] by Automat ed count Erythro 36.1 32.0 - g/dL High No Sep 01 cyte 36.0 informa 2015 mean tion in 5:25 PM corpusc source ular data hemoglo bin concent ration [Mass/v olume] in Blood from Fetus by Automat ed count Erythro 12.1 11.5 - % No No Sep 01 cyte 14.5 informa informa 2016 distrib tion in tion in 5:25 PM ution source source width data data [Ratio] by Automat ed count Platele 245 150 - K/uL No No Sep 01 ts 450 informa informa 2016 [#/volu tion in tion in 5:25 PM me] in source source Blood data data by Automat ed count Lymphoc 24.2 18.0 - % No No Sep 01 ytes/10 42.0 informa informa 2016 0 tion in tion in 5:25 PM leukocy source source tory in data data Blood by Automat ed count Monocyt 7.8 2.0 - % No No Sep 01 es/100 11.0 informa informa 2016 leukocy tion in tion in 5:25 PM tory in source source Blood data data by Automat ed count Neutrop 67.4 50.0 - % No No Sep 01 hils.ba 70.0 informa informa 2016 nd tion in tion in 5:25 PM form/10 source source 0 data data leukocy tory in Blood by Manual count Eosinop 0.30 1.00 - % Low No Apr 11 hils/10 3.00 informa 2016 0 tion in 5:25 PM leukocy source tory in data Blood by Automat ed count Basophi 0.30 0.00 - % No No Apr 11 ls/100 2.00 informa informa 2016 leukocy tion in tion in 5:25 PM tory in source source Blood data data by Automat ed count Lymphoc 2.25 0.60 - K/uL No No Aug 11 ytes/10 3.40 informa informa 2016 0 tion in tion in 5:25 PM leukocy source source tory in data data Blood by Automat ed count Monocyt 0.73 0.00 - K/uL No No Aug 11 es/100 0.90 informa informa 2016 leukocy tion in tion in 5:25 PM tory in source source Blood data data by Automat ed count Neutrop 6.26 2.00 - K/uL No No Aug 11 hils.ba 6.90 informa informa 2016 nd tion in tion in 5:25 PM form/10 source source 0 data data leukocy tory in Blood by Manual count Eosinop 0.03 0.00 - K/uL No No Aug 11 hils/10 0.70 informa informa 2016 0 tion in tion in 5:25 PM leukocy source source tory in data data Blood by Automat ed count Basophi 0.03 0.00 - K/uL No No Apr 11 ls/100 0.20 informa informa 2016 leukocy tion in tion in 5:25 PM tory in source source Blood data data by Automat ed count Manual NOT No No No No Aug 11 differe INDICAT informa informa informa informa 2016 ntial ED tion in tion in tion in tion in 5:25 PM perform source source source source ed data data data data [Presen ce] in Blood XR CHEST AP LA Observa Value Referen Units Interpr Notes Date tion ce etation Range XR \.br\ No No No No Apr 11 CHEST informa informa informa informa 2016 AP LA tion in tion in tion in tion in 4:57 PM source source source source data data data data [facility]\.br\ [address]\.br \ [place] [address]\. br\\.br \ ------- --NAME- ------- - NUMBER SEX AGE ADMIT DISC. XRAY# F/C TYPE\.b r\ MARIAM ANTOINETTE [id number] F 34 09/02/15 09/03/15 04514 XWB OBSERV\ .br\ DATE OF : [birth year] M/R# [id number] PH#: RM 250\.br \ LOCATIO N: TRANSCR IBED: 6 10:01\. br\ [place] [id number] COMPLET ED:08/22 07/09 8:59 CGS [id number]\. br\ {REASON FOR CHEST: COPD\.b r\\.br\ PHYSICI AN: ROSSY GLE\.br \\.br\\ .br\=== ======= ======= ======= ======= ======= ======= ======= ======= ======= ======= ======\ .br\ RADIOLO GY REPORT\ .br\=== ======= ======= ======= ======= ======= ======= ======= ======= ======= ======= ======\ .br\ORD ER DATE and TIME: 016 1657\.b r\\.br\ \.br\PA AND LATERAL CHEST, 09/03/19 16:\.br \\.br\C LINICAL HISTORY : Shortne ss of breath and COPD.\. br\\.br \COMPAR DIGNA: CTA chest, 09/02/19 16\.br\ \.br\FI NDINGS: The cardiom ediasti nal silhoue tte is within normal limits. The lungs\. br\are clear bilater ally without pleural fluid or focal pneumon ia. There are\.br \mild endplat e osteoph ytes at T7-8 and T8-9. Cholecy stectom y clips are present \.br\in the right upper quadran t.\.br\ \.br\IM PRESSIO N:\.br\ \.br\1. No evidenc e of acute cardiop ulmonar y disease .\.br\\ .br\\.b r\Elect ronical ly Signed By:\.br \IDA NYE MD,RADI OLOGIST \.br\Da te/Time : 6 10:01\. br\
--- OUTSIDE RECORDS SUMMARY | 2017-04-01 23:30 | External Medical Summary Rpt ---
[...] source source AM data data data data [facility]\.br\ [address]br \ [place] [place] [address]\. br\\.br \ ------- --NAME- ------- - NUMBER SEX AGE ADMIT DISC. XRAY# F/C TYPE\.b r\ MARIAM ANTOINETTE [id number] F [id number] 6 6 [id number] XWB E/R\.br \ DATE OF : 9[birth year] M/R# [id number] #: RM EROOO\. br\ LOCATIO N: TRANSCR IBED: 6 9:03\.b r\ [place] [id number] COMPLET ED: 06/08 1:04 BLM [id number]\. br\ {REASON FOR CHEST: COUGH\. br\\.br \ [...] source source WITHOUT data data data data [facility]\.br\ [address]br \ [place] [address]\. br\\.br \ RADIOLO GY REPORT\ .br\ Name: MARIAM CURRY\ .br\ Patient #: [id number] Stay Type: OBSERV\ .br\ Age: 34 Room: 250\.br \ : 980 Sex: F\.br\ Orderin g Phys: ROSSY GLE MR#: [id number]\. br\ Family Phys: ROSSY GLE Pt Phone: [phone] /[phone]\. br\ Admitti ng Phys: ROSSY GLE\.br \ Unsig chioma Transcr iptions represe nt a prelimi nary report and do\.br\ not reflect a medical or legal documen t.\.b r\\.br\ CTA CHEST WITH or WITHOUT [id number] COMPLET E:09/01 18:59 BLM [id number]\. br\ Diagnos is: SOA\.br \\.br\\ .br\\.b r\ [...] By: Nitin LUO MD RADIOLO GIST\.b r\ [facility]\.br\ [address]br \ [facility] [place] [address]\. br\\.br \ RADIOLO GY REPORT\ .br\ Name: MARIAM CURRY\ .br\ Patient #: [id number] Stay Type: OBSERV\ .br\ Age: 34 Room: 250\.br \ : 980 Sex: F\.br\ Orderin g Phys: ROSSY ROMANO MR#: [id number]\. br\ Family Phys: ROSSY GLE Pt Phone: [phone] /[phone]\. br\ Admitti ng Phys: ROSSY GLE\.br \ Unsig chioma Transcr iptions represe nt a prelimi nary report and do\.br\ not reflect a medical or legal documen t.\.b r\\.br\ CTA CHEST WITH or WITHOUT [id number] COMPLET E:09/01 18:59 BLM 06607\. br\ Diagnos is: SOA\.br \\.br\ Transcr . [...] would account for all circums tances. 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 There are otherca uses of increas ed NT-proB BANDING MACHINE OPERATOR not related to congest callie heartfa ilure [...] source source source data data data data [facility]\.br\ [address]br \ [place] [address]\. br\\.br \ ------- --NAME- ------- - NUMBER SEX AGE ADMIT DISC. XRAY# F/C TYPE\.b r\ MARIAM ANTOINETTE [id number] F 34 09/02/15 09/03/15 14027 XWB OBSERV\ .br\ DATE OF : 980 M/R# [id number] PH#: RM 250\.br \ LOCATIO N: TRANSCR IBED: 6 10:01\. br\ [place] [id number] COMPLET ED:08/22 07/09 8:59 CGS 43683\. br\ {REASON FOR CHEST: COPD\.b r\\.br\ PHYSICI [...]
--- NOTE | 2017-04-01 23:40 | Emergency Room Report ---
History of Present Illness Time Seen by [id number] Presenting Problem in Triage Pt arrived:Walked Presenting Problem:C/O REDDNESS AND BURNING FEELING TO FACE. STATES THINKS ITS A ALLERGIC RX TO MOLD. C/O ABD PAIN WITH DIARRHEA Onset of symptoms date/time:03/31/17/ or onset unknown for:MEDICAL HX UNKNOWN Treatment Prior to Arrival: PREDNISONE, AND HYDROXYZINE DBA Provided by:SELF Sepsis Risk Assessment: Temp: 98.6 B/P: 152/79 MAP: 103 Pulse: 89 Resp: 18 Recent fever? N Clinical Suspician of Infection? N Mental Status: 1 - Regular (Normal Baseline) Sepsis Risk:Low Sepsis Risk Have you (or family members/close friends) recently traveled outside the [place]? N If Yes, where/when: Have you had exposure to infectious disease within the past month? N TB? Other? Specify: Source patient, RN notes reviewed, family, old records Exam Limitations no limitations ALLERGIES Coded Allergies: sulfamethoxazole (From BACTRIM) (Mild, 01/16/17) trimethoprim (From BACTRIM) (Mild, 01/16/17) Home Medications Active Scripts OMEPRAZOLE MAGNESIUM (Prilosec 20MG) 20 MG PO DAILY #10 TCP Prov: 01/16/17 Reported Medications Prednisone (Prednisone 20MG) 20 MG PO BID Hydroxyzine Pamoate (Vistaril) 25 MG PO BID History Medical History General CAD? No Angina: No [place]: No Hypertension? No Hyperlipidemia? No CHF? No DVT? No PE? No COPD? No Asthma? No Anemia? No GERD? No Gastric ulcers? No GI Bleed? No Hernia? No Thyroid Problems? No Hypothyroidism? No CVA? No Seizures? No Diabetes? No Renal Insuffiency? No End Stage Renal Disease? No UTI? No Stones? No BPH? No GB Disease: Yes Nephritic Syndrome? No Asplenia? No Hepatitis? No Sickle Cell Disease? No Arthritis? No Migraines? No Cataracts? No Glaucoma? No MRSA? No HIV? No TB? No Anxiety? No Depression? No Cancer? No More? 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 Respiratory denies cough, denies shortness of breath Cardiovascular denies chest pain, denies palpitations, denies syncope Gastrointestinal denies abdominal pain, denies diarrhea, denies vomiting Genitourinary denies: dysuria, frequency, hesitancy, hematuria. Musculoskeletal denies back pain, denies joint pain, denies joint swelling, denies neck pain Skin denies rash Psychiatric/Neurological denies headache, denies seizure Physical Exam Vital Signs Vital Signs Date Time Temp Pulse Resp B/P Pulse O2 O2 Flow FiO2 Ox Delivery Rate 04/02 0022 76 18 154/82 96 04/01 2300 98.6 89 18 152/79 96 - WBC >12,000 or <4,000 or 10% bands? 2 or more SIRS Criteria Met? B/P:154/82 MAP:103 Creatinine >2.0? UA output<0.5ml/kg/hr for 2 hrs? Platelet count >100,000? Lactate >2.0mmol/1? INR >1.2 or PTT > than 60 sec? Evidence of Organ Dysfunction? Provider documented clinical suspician of infection? N Sepsis Criteria Count: 0 Sepsis Risk: Low Sepsis Risk General Appearance no apparent distress Eye Exam - bilateral eye PERRL, bilateral eye EOMI Ear, Nose, Throat normal ENT inspection Neck supple Respiratory Status No: respiratory distress. Lung Sounds bilateral: lungs clear. 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 No Results/Orders Laboratory Tests 04/01/17 2320: Sodium 137, Potassium 3.8, Chloride 101, Carbon Dioxide 26, BUN 6 L, Creatinine 0.7, Estimated Creat Clear 158, Estimated GFR (MDRD) 94, Glucose 167 H, Calcium 9.5, Total Bilirubin 0.7, AST 49 H, ALT 139 H, Alkaline Phosphatase 119 H, Total Protein 8.0, Albumin 4.3, Globulin 3.7 H, Albumin/Globulin Ratio 1.2, Amylase 50, Lipase 118, WBC 12.7 H, RBC 4.73, Hgb 14.9, Hct 43.4, MCV 91.6, RDW 12.9, Plt Count 323, MPV 8.9, Gran % 87.5 H, Gran # 11.1 H, Total Counted Pending, Lymphocytes % 8.4 L, Monocytes % 2.2, Eosinophils % 1.6, Basophils % 0.3, Neutrophils Pending, Lymphocytes (Manual) Pending, Lymphocytes # 1.1, Monocytes # 0.3, Eosinophils # 0.2, Basophils # 0.0, Platelet Estimate Pending, PUBS MCHC 34.4, MCH 31.5 H 04/01/172309: Urine Color YELLOW, Urine Appearance CLEAR, Urine pH 7.5, Ur Specific [place] 1.010, Urine Protein NEGATIVE, Urine Ketones NEGATIVE, Urine Blood TRACE-INTACT, Urine Nitrate NEGATIVE, Urine Bilirubin NEGATIVE, Urine Urobilinogen 0.2, Ur Leukocyte Esterase NEGATIVE, Urine RBC 3-5, Urine WBC OCC, Ur Squamous Epith Cells 3-5, Urine Bacteria 1+, Urine Glucose TRACE H Current Medication Orders Sig/Kayy Start time Last Medication Dose Route Stop Time Status Admin Sodium Chloride 10 ML PRN PRN 04/01 2315 AC IV 04/02 2309 Sodium Chloride 1,000 ML .Q1H1M 04/01 2315 DC 04/01 IV 04/025 2314 Sodium Chloride 10 ML PRN PRN 04/01 2315 AC IV 04/02 2310 Sodium Chloride 1,000 ML .STK-MED ONE 04/01 2312 DC IV Orders Procedure Date/time Status DIET-NOTHING BY MOUTH 04/[address] ABD & PELVIS W/O CONTRAST 04/01 2325 Active DIFFERENTIAL-WBC 04/[address] ABD/PELVIS REQ 04/01 2310 Complete IV SALINE LOCK 04/01 2310 Active URINALYSIS/COMPLETE 04/01 2310 Complete LIPASE 04/01 2310 Complete CBC WITH AUTO DIFF 04/01 2310 Active CHEM 12 PROFILE 04/01 2310 Complete AMYLASE 04/01 2310 Complete XRAY/CT/US XRAY/CT/US CT abdomen, pelvis CT interpretation by discussed w/radiologist Time results known: 0048 CT Results normal/NAD Departure Departure Time of Disposition 004 Disposition DC Home or Self Care(routine) Clinical Impression Primary Impression: Allergic reaction Qualifiers: Encounter type: initial encounter Qualified Code: T78.40XA - Allergy, unspecified, initial encounter Condition STABLE Referrals ANOOP SOSA (Family) Patient Instructions DI for General Allergic Reactions Additional Instructions keep appt with optical element coater this am Discharge Counseling Counseled pt/family regarding diagnosis, test results, medications/RX, follow up needs ED Critical Care Critical Care No at 0050
--- NOTE | 2017-04-01 23:40 | Emergency Room Report ---
History of Present Illness Time Seen by [id number] Presenting Problem in Triage Pt arrived:Walked Presenting Problem:C/O REDDNESS AND BURNING FEELING TO FACE. STATES THINKS ITS A ALLERGIC RX TO MOLD. 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 N Clinical Suspician of Infection? N Mental Status: 1 - Regular (Normal Baseline) Sepsis Risk:Low Sepsis Risk Have you (or family members/close friends) recently traveled outside the [place]? N If Yes, where/when: Have you had exposure to infectious disease within the past month? N TB? Other? Specify: Source patient, RN notes reviewed, family, old records Exam Limitations no limitations ALLERGIES Coded Allergies: sulfamethoxazole (From BACTRIM) (Mild, 01/16/17) trimethoprim (From BACTRIM) (Mild, 01/16/17) Home Medications Active Scripts OMEPRAZOLE MAGNESIUM (Prilosec 20MG) 20 MG PO DAILY #10 TCP Prov: 01/16/17 Reported Medications Prednisone (Prednisone 20MG) 20 MG PO BID Hydroxyzine Pamoate (Vistaril) 25 MG PO BID History Medical History General CAD? No Angina: No [place]: No Hypertension? No Hyperlipidemia? No CHF? No DVT? No PE? No COPD? No Asthma? No Anemia? No GERD? No Gastric ulcers? No GI Bleed? No Hernia? No Thyroid Problems? No Hypothyroidism? No CVA? No Seizures? No Diabetes? No Renal Insuffiency? No End Stage Renal Disease? No UTI? No Stones? No BPH? No GB Disease: Yes Nephritic Syndrome? No Asplenia? No Hepatitis? No Sickle Cell Disease? No Arthritis? No Migraines? No Cataracts? No Glaucoma? No MRSA? No HIV? No TB? No Anxiety? No Depression? No Cancer? No More? 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 Respiratory denies cough, denies shortness of breath Cardiovascular denies chest pain, denies palpitations, denies syncope Gastrointestinal denies abdominal pain, denies diarrhea, denies vomiting Genitourinary denies: dysuria, frequency, hesitancy, hematuria. Musculoskeletal denies back pain, denies joint pain, denies joint swelling, denies neck pain Skin denies rash Psychiatric/Neurological denies headache, denies seizure Physical Exam Vital Signs Vital Signs Date Time Temp Pulse Resp B/P Pulse O2 O2 Flow FiO2 Ox Delivery Rate 04/02 0022 76 18 154/82 96 04/01 2300 98.6 89 18 152/79 96 - WBC >12,000 or <4,000 or 10% bands? 2 or more SIRS Criteria Met? B/P:154/82 MAP:103 Creatinine >2.0? UA output<0.5ml/kg/hr for 2 hrs? Platelet count >100,000? Lactate >2.0mmol/1? INR >1.2 or PTT > than 60 sec? Evidence of Organ Dysfunction? Provider documented clinical suspician of infection? N Sepsis Criteria Count: 0 Sepsis Risk: Low Sepsis Risk General Appearance no apparent distress Eye Exam - bilateral eye PERRL, bilateral eye EOMI Ear, Nose, Throat normal ENT inspection Neck supple Respiratory Status No: respiratory distress. Lung Sounds bilateral: lungs clear. 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 No Results/Orders Laboratory Tests 04/01/17 2320: Sodium 137, Potassium 3.8, Chloride 101, Carbon Dioxide 26, BUN 6 L, Creatinine 0.7, Estimated Creat Clear 158, Estimated GFR (MDRD) 94, Glucose 167 H, Calcium 9.5, Total Bilirubin 0.7, AST 49 H, ALT 139 H, Alkaline Phosphatase 119 H, Total Protein 8.0, Albumin 4.3, Globulin 3.7 H, Albumin/Globulin Ratio 1.2, Amylase 50, Lipase 118, WBC 12.7 H, RBC 4.73, Hgb 14.9, Hct 43.4, MCV 91.6, RDW 12.9, Plt Count 323, MPV 8.9, Gran % 87.5 H, Gran # 11.1 H, Total Counted Pending, Lymphocytes % 8.4 L, Monocytes % 2.2, Eosinophils % 1.6, Basophils % 0.3, Neutrophils Pending, Lymphocytes (Manual) Pending, Lymphocytes # 1.1, Monocytes # 0.3, Eosinophils # 0.2, Basophils # 0.0, Platelet Estimate Pending, PUBS MCHC 34.4, MCH 31.5 H 04/01/172309: Urine Color YELLOW, Urine Appearance CLEAR, Urine pH 7.5, Ur Specific [place] 1.010, Urine Protein NEGATIVE, Urine Ketones NEGATIVE, Urine Blood TRACE-INTACT, Urine Nitrate NEGATIVE, Urine Bilirubin NEGATIVE, Urine Urobilinogen 0.2, Ur Leukocyte Esterase NEGATIVE, Urine RBC 3-5, Urine WBC OCC, Ur Squamous Epith Cells 3-5, Urine Bacteria 1+, Urine Glucose TRACE H Current Medication Orders Sig/Kayy Start time Last Medication Dose Route Stop Time Status Admin Sodium Chloride 10 ML PRN PRN 04/01 2315 AC IV 04/02 2309 Sodium Chloride 1,000 ML .Q1H1M 04/01 2315 DC 04/01 IV 04/025 2314 Sodium Chloride 10 ML PRN PRN 04/01 2315 AC IV 04/02 2310 Sodium Chloride 1,000 ML .STK-MED ONE 04/01 2312 DC IV Orders Procedure Date/time Status DIET-NOTHING BY MOUTH 04/[address] ABD & PELVIS W/O CONTRAST 04/01 2325 Active DIFFERENTIAL-WBC 04/[address] ABD/PELVIS REQ 04/01 2310 Complete IV SALINE LOCK 04/01 2310 Active URINALYSIS/COMPLETE 04/01 2310 Complete LIPASE 04/01 2310 Complete CBC WITH AUTO DIFF 04/01 2310 Active CHEM 12 PROFILE 04/01 2310 Complete AMYLASE 04/01 2310 Complete XRAY/CT/US XRAY/CT/US CT abdomen, pelvis CT interpretation by discussed w/radiologist Time results known: 0048 CT Results normal/NAD Departure Departure Time of Disposition 004 Disposition DC Home or Self Care(routine) Clinical Impression Primary Impression: Allergic reaction Qualifiers: Encounter type: initial encounter Qualified Code: T78.40XA - Allergy, unspecified, initial encounter Condition STABLE Referrals ANOOP SOSA (Family) Patient Instructions DI for General Allergic Reactions Additional Instructions keep appt with waitstaff captain this am Discharge Counseling Counseled pt/family regarding diagnosis, test results, medications/RX, follow up needs ED Critical Care Critical Care No at 0050
[2017-04-02 01:00] VITALS: BP 154/82
[2017-04-02 04:38] LABS: NEUTROPHILS 85 % (42-76)
--- NOTE | 2017-04-02 08:31 | RADIOLOGY REPORT PS360 ---
CT ABD PELVIS W/O CONTRAST CLINICAL INDICATION: Epigastric pain with diarrhea C/O ABD PAIN AND DIARRHEA ORDERING PHYSICIAN: Shanita Lopez MD PATIENT AGE: 36 years COMPARISON: None TECHNIQUE: Axial images obtained with sagittal and coronal reformats. PROCEDURE: Oral Contrast: None IV Contrast: None . FINDINGS: Lower thorax: No acute finding ABDOMEN: Liver: No masses or biliary dilatation. Gallbladder: Post cholecystectomy. No ductal dilatation Pancreas: No masses or peripancreatic fluid collections. Spleen: Unremarkable. Adrenals: Unremarkable Kidneys/ureters: 2 nonobstructing stones in the left kidney measuring 2 and 3 mm in the mid and lower pole. Stomach bowel: Nondistended. No obvious mass or thickening. Appendix: No evidence of appendicitis. PELVIS: Reproductive: 2.7 cm right ovarian cyst. Post hysterectomy Bladder: Nondistended. No obvious stones or masses. ABDOMEN & PELVIS: Peritoneum: No abnormal fluid collections. No obvious inflammatory changes. No free air. Lymph nodes: No enlarged lymph nodes apparent. Vasculature: No evidence of abdominal aortic aneurysm. No retroperitoneal hemorrhage evident. Bones: No acute fracture IMPRESSION: 1. No acute intra-abdominal or pelvic findings. 2. Nonobstructing left nephrolithiasis. 3. 2.7 cm right ovarian cyst which may be confirmed with ultrasound of clinically warranted
== END 2017-04-02 01:34 | disposition home or self-care (01) ==
LOC: ER 22:54
PROVIDERS: Emergency Medicine
DX: T78.40XA Allergy, unspecified, initial encounter (principal); Z87.891 Personal history of nicotine dependence; Z88.2 Allergy status to sulfonamides